=== PATIENT | male | born 1940 | race Caucasian/White ===

== ENCOUNTER → 2016-10-10 | Outpatient (CLI) | payer BC ==
[~2016-10-10] MED LIST: ACET-1256 PO; ASCO1CAP3 PO; ATV1 PO; CETI10TA84 PO; CHOLCAP5 PO; CYAN10004 PO; LEVO75TA PO; LISI-791 PO; MULT-506 PO; NXM/40 PO; OPTIRAY 320 IV PRN; SIMV20TA2 PO; VENL-271 PO; VITA400C3 PO
--- NOTE | 2016-10-10 13:40 | DIAGNOSTIC IMAGING REPORT ---
CT SCAN OF THE CHEST, ABDOMEN, AND PELVIS WITH IV CONTRAST CLINICAL HISTORY: Colon cancer. COMPARISON STUDY: CT scan of the abdomen and pelvis dated 08/25/2015. CT scan of the thoracic spine dated 08/25/2015. TECHNIQUE: Following the IV administration of 110 of Optiray 320, CT scan of the chest, abdomen, and pelvis was performed from the thoracic inlet to the proximal femora. Images are reviewed in the axial, sagittal, and coronal planes. IV contrast was administered without complication. Automated dose control exposure was utilized. CT DOSE: 816.05 mGy.cm FINDINGS: CHEST: Thyroid: Imaged portions of the thyroid gland are normal in size and attenuation. Thoracic aorta: The thoracic aorta is normal in caliber and demonstrates standard 3-vessel arch anatomy. No dissection is seen. Pulmonary vasculature: The pulmonary trunk is normal in caliber. There are no filling defects identified in the central pulmonary vessels to indicate pulmonary was. Note that this examination was not protocoled for evaluation of the pulmonary arteries. Heart: The heart is enlarged and without pericardial effusion. The coronary arteries are densely calcified. Lungs and pleural spaces: There is no airspace consolidation or pleural effusion. Scattered calcified granulomas are identified. No concerning pulmonary lesion is seen. The trachea and central airways are clear. Mediastinum: There is no mediastinal lymphadenopathy. Ofelia: Clear. Axillae: There is no axillary lymphadenopathy. Bony thorax: The skeletal structures are osteopenic. Mild degenerative change is noted throughout the thoracic spine. No lytic or blastic lesions are identified. Fusion hardware is noted in the lower cervical spine. ABDOMEN AND PELVIS: Liver: The contrast-enhanced liver is top normal in size. The liver demonstrates diffusely diminished attenuation consistent with hepatic steatosis. Fatty sparing is seen adjacent to gallbladder fossa. There is no intrahepatic or ductal dilatation. The hepatic veins and portal veins are patent. Gallbladder: Unremarkable. Spleen: The spleen is enlarged, measuring 15 cm in length. Pancreas: Unremarkable. Adrenal glands: Unremarkable. Kidneys: The contrast enhanced kidneys demonstrate mild cortical atrophy and are without hydronephrosis. The kidneys enhance symmetrically. Abdominal vasculature: The abdominal aorta is normal in course and caliber noting moderate atherosclerotic calcification. Stomach and bowel: There is a small hiatal hernia. The stomach and duodenum otherwise normal in configuration. There is a large duodenal diverticulum. There are postoperative changes from sigmoid colon resection with colocolonic anastomosis. No bowel obstruction is seen. There is mild diverticulosis of the remaining colon without CT evidence of acute diverticulitis. The appendix is not identified and reported surgically absent. Peritoneum: There is no intraperitoneal free air or abdominal ascites. There is a fat-containing umbilical hernia. A ventral surgical scar is noted. Lymphadenopathy: None. Pelvic viscera: The bladder, prostate, and seminal vesicles are normal as visualized. Skeletal structures: The skeletal structures are osteopenic. There is moderate lumbosacral spondylosis with evidence of previous laminectomy in the lower lumbar spine. A large posterior disc osteophyte complex is seen at L2-L3. No lytic or blastic lesions are seen. IMPRESSION: 1. There is no evidence of metastatic disease in the chest, abdomen, or pelvis. 2. The lungs are clear. 3. Cardiomegaly. 4. There are no acute infectious or inflammatory findings in the abdomen or pelvis. 5. There are postoperative changes from sigmoid colon resection with colocolonic anastomosis. No bowel obstruction is seen. 6. Hepatic steatosis. 7. Splenomegaly. 8. There is mild diverticulosis of the colon without CT evidence of acute diverticulitis. 9. Additional changes as above. Electronically signed by: Vitaly Sunshine M.D. 10/10/2016 1:38 PM Dictated Date/Time: 10/10/2016 1:27 PM
== END | disposition home or self-care (01) ==
LOC: C.CTS 12:35
PROVIDERS: ATTEND Internal Medicine Hematology & Oncology
DX: C18.5 Malignant neoplasm of splenic flexure (principal); I51.7 Cardiomegaly; R16.1 Splenomegaly, not elsewhere classified

== ENCOUNTER → 2016-10-31 | Outpatient (CLI) | payer BC ==
[~2016-10-31] MED LIST changes: -OPTIRAY 320 IV PRN
--- NOTE | 2016-10-31 10:36 | DIAGNOSTIC IMAGING REPORT ---
CT OF THE CERVICAL SPINE CLINICAL HISTORY: Neck pain. Cervical radiculopathy. COMPARISON STUDY: No previous studies for comparison. CT DOSE: 492.00 mGycm TECHNIQUE: CT scan of the cervical spine was performed from the skull base to the thoracic inlet. Images are reviewed in the axial, sagittal, and coronal planes. IV contrast was not administered for this examination. FINDINGS: The visualized portions of the lung apices reveal no evidence of pneumothorax. The prevertebral soft tissues are normal. No fractures or subluxations are visualized. There are multilevel degenerative changes present. The patient is status post a partial C6 corpectomy and anterior fusion. There is right-sided foraminal narrowing at the C3-4 level. There is mild bilateral foraminal narrowing at the C4-5, C5-6, and C6-7 levels. There is suspected spinal stenosis the C6-7 level. IMPRESSION: Postsurgical and degenerative changes. No acute fractures or traumatic subluxations are visualized. Electronically signed by: Vincent Larsen M.D. 10/31/2016 10:34 AM Dictated Date/Time: 10/31/2016 10:24 AM
--- NOTE | 2016-10-31 12:19 | DIAGNOSTIC IMAGING REPORT ---
MRI OF THE CERVICAL SPINE WITHOUT IV CONTRAST CLINICAL HISTORY: Neck pain. Cervical radiculopathy. COMPARISON STUDY: CT scan of the cervical spine dated 10/31/2016. TECHNIQUE: MRI of the cervical spine is performed utilizing various T1 and T2-weighted sequences in the axial and sagittal planes. IV contrast was not administered for this examination. FINDINGS: Cervical spine: Vertebral body height is maintained throughout the cervical spine. There is straightening of the cervical lordosis with mild reversal centered at C5. There is 4 mm of anterolisthesis at C7-T1. There are postoperative changes from corpectomy at C6 with anterior fusion from C5 to C7. Susceptibility artifact from orthopedic hardware degrades assessment at these levels. The atlantodental articulation appears maintained. The spinous processes are intact. Anterior osteophytes are seen at C3 and C4. No destructive bony lesion is identified. A small hemangioma is noted in the body of T2. Intervertebral discs: There is moderate to advanced degenerative disc space narrowing at C3-C4 and C4-C5. Mild narrowing is seen at C7-T1. The C5-C6 and C6-C7 discs are presumed surgically absent. Cervical cord: There is a 5 mm focus of myelomalacia seen at the level of C5-C6. This is likely related to remote insult. The remainder of the cervical cord is normal in morphology and signal intensity. C2-C3: A posterior disc osteophyte complex eccentric to the left effaces the ventral subarachnoid space. Facet arthropathy causes minimal left neural foraminal stenosis. C3-C4: A posterior disc osteophyte complex effaces the ventral cord. Uncovertebral and facet arthropathy cause severe right and moderate to severe left neural foraminal stenosis. C4-C5: A posterior disc osteophyte complex effaces the ventral subarachnoid space. Uncovertebral and facet arthropathy cause severe bilateral neural foraminal stenosis. C5-C6: A posterior disc osteophyte complex abuts the ventral cord. Uncovertebral and facet arthropathy cause moderate bilateral neural foraminal stenosis. C6-C7: A posterior disc osteophyte complex abuts the ventral cord. Uncovertebral and facet arthropathy cause severe left and moderate right neural foraminal stenosis. C7-T1: A posterior disc osteophyte complex eccentric to the left effaces the ventral subarachnoid space. The neural foramina appear patent. Soft tissues: The prevertebral and paraspinous soft tissues are normal as imaged. Brain parenchyma: Nigel cisterna magna versus an arachnoid cyst is present in the posterior fossa. Partially imaged brain parenchyma at the skull base is otherwise within normal limits. IMPRESSION: 1. There are postoperative changes from corpectomy at C6 with anterior fusion from C5 to C7 as detailed above. 2. Multilevel cervical spondylosis as above. See discussion for detailed level by level analysis. 3. 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 This is likely related to a remote insult. Clinical correlation will be required. 4. There is 4 mm of anterolisthesis at C7-T1. Dictated: 10/31/2016 11:29 AM Transcribed: 10/31/2016 12:19 PM [email or web address] Electronically signed by: Vitaly Sunshine M.D. 10/31/2016 12:36 PM Dictated Date/Time: 10/31/2016 11:29 AM
== END | disposition home or self-care (01) ==
LOC: C.CTS 09:55
PROVIDERS: ATTEND Orthopaedic Surgery Orthopaedic Surgery of the Spine
DX: M54.12 Radiculopathy, cervical region (principal)

== ENCOUNTER → 2016-11-05 | Outpatient (CLI) | payer BC ==
--- NOTE | 2016-11-05 11:19 | DIAGNOSTIC IMAGING REPORT ---
TESTICULAR ULTRASOUND HISTORY: Testicular atrophy.. COMPARISON: Testicular ultrasound 05/01/2016. FINDINGS: Right testis: 5.1 x 2.7 x 1.6 cm. There are no intratesticular masses. Normal color flow. No hydrocele. The epididymis is unremarkable. Echotexture of the right testis remains diffusely heterogeneous. Left testis: 5.7 x 2.8 x 3.8 cm. There are no intratesticular masses. Normal color flow. No hydrocele. A 1 mm epididymal head cyst. Echotexture of the left testis remains heterogeneous/striated. IMPRESSION: No change from the prior study. Persistent heterogeneous testicular echotexture, right greater than left. This favors atrophy. Electronically signed by: Delonte Aguila M.D. 11/05/2016 11:18 AM Dictated Date/Time: 11/05/2016 11:15 AM
== END | disposition home or self-care (01) ==
LOC: C.ULTR 10:49
PROVIDERS: ATTEND Urology
DX: Z12.5 Encounter for screening for malignant neoplasm of prostate (principal); N52.9 Male erectile dysfunction, unspecified; N50.0 Atrophy of testis

== ENCOUNTER → 2017-09-26 | Outpatient (CLI) | payer BC ==
[~2017-09-26] MED LIST changes: +OPTIRAY 320 IV PRN
--- NOTE | 2017-09-26 12:50 | DIAGNOSTIC IMAGING REPORT ---
(CHEST) THORAX WITH CT DOSE: 798.02 mGy.cm HISTORY: Colon carcinoma COLON CA TECHNIQUE: Multiaxial CT images of the chest were performed following the intravenous administration of contrast. A dose lowering technique was utilized adhering to the principles of ALARA. COMPARISON: 10/10/2016 FINDINGS: The lungs are clear. The mediastinal vascular structures are within normal limits. No mediastinal or hilar lymphadenopathy. No pleural effusion or pneumothorax. Limited views of the upper abdomen demonstrate a normal liver and spleen. IMPRESSION: No significant abnormality identified within the chest. Negative study. No change from the prior exam. The above report was generated using voice recognition software. It may contain grammatical, syntax or spelling errors. Electronically signed by: Gaurav Us M.D. 09/26/2017 12:48 PM Dictated Date/Time: 09/26/2017 12:44 PM
--- NOTE | 2017-09-26 12:53 | DIAGNOSTIC IMAGING REPORT ---
CT SCAN OF THE ABDOMEN AND PELVIS WITH IV CONTRAST CLINICAL HISTORY: Colon cancer. COMPARISON STUDY: CT scan of the abdomen and pelvis dated 10/10/2016. TECHNIQUE: Following the IV administration of 95 of Optiray 320, CT scan of the abdomen and pelvis was performed from the lung bases to the proximal femora. Images are reviewed in the axial, sagittal, and coronal planes. IV contrast was administered without complication. A dose lowering protocol was utilized adhering to the principles of ALARA. FINDINGS: Lower chest: The heart is enlarged and without pericardial effusion. The coronary arteries are densely calcified. There is a small hiatal hernia. The lung bases are clear. Liver: The contrast-enhanced liver is top normal in size. The liver demonstrates diffusely diminished attenuation consistent with hepatic steatosis. Fatty sparing is seen adjacent to gallbladder fossa. There is no intrahepatic or ductal dilatation. The hepatic veins and portal veins are patent. Gallbladder: Unremarkable. Spleen: The spleen is enlarged, measuring 15.1 cm in length. Pancreas: Unremarkable. Adrenal glands: Unremarkable. Kidneys: The contrast enhanced kidneys demonstrate mild cortical atrophy and are without hydronephrosis. The kidneys enhance symmetrically. Abdominal vasculature: The abdominal aorta is normal in course and caliber noting moderate atherosclerotic calcification. Bowel: There is a large duodenal diverticulum. There are postoperative changes from sigmoid colon resection with colocolonic anastomosis. Moderate colonic fecal retention is observed. No bowel obstruction is seen. There is mild diverticulosis of the remaining colon without CT evidence of acute diverticulitis. The appendix is not identified and reported surgically absent. Peritoneum: There is no intraperitoneal free air or abdominal ascites. There is a fat-containing umbilical hernia. A ventral surgical scar is noted. Lymphadenopathy: None. Pelvic viscera: The bladder, prostate, and seminal vesicles are normal as visualized. Skeletal structures: The skeletal structures are heterogeneously osteopenic. There is moderate lumbosacral spondylosis with evidence of previous laminectomy in the lower lumbar spine. A large posterior disc osteophyte complex is seen at L2-L3. No lytic or blastic lesions are seen. IMPRESSION: 1. There is no evidence of metastatic disease in the abdomen or pelvis. 2. There are no acute infectious or inflammatory findings in the abdomen or pelvis. 3. Cardiomegaly. 4. Splenomegaly. 5. There are postoperative changes from sigmoid colon resection with colocolonic anastomosis. No bowel obstruction is seen. 6. Hepatic steatosis. 7. Splenomegaly. 8. Additional changes as above. Electronically signed by: Vitaly Sunshine M.D. 09/26/2017 12:52 PM Dictated Date/Time: 09/26/2017 12:46 PM
== END | disposition home or self-care (01) ==
LOC: C.CTS 12:15
PROVIDERS: ATTEND Internal Medicine Hematology & Oncology
DX: C18.5 Malignant neoplasm of splenic flexure (principal); R16.1 Splenomegaly, not elsewhere classified; I51.7 Cardiomegaly

== ENCOUNTER 2021-11-09 10:06 | Inpatient (IN) ==
--- NOTE | 2021-11-01 13:23 | PAT Medication Instructions ---
Medication Instructions Date of Service November 01, 2021 Home Medications Medication Instructions Recorded apixaban 5 mg tablet (Eliquis) 5 mg PO BID #60 tab 08/13/21 mometasone 0.1 % topical solution 1 applic TOPICAL DAILY PRN #30 ml 09/06/21 cyanocobalamin (vitamin B-12) 1,000 mcg tablet 1,000 mcg PO QAM amlodipine 10 mg tablet (Norvasc) 10 mg PO QPM atorvastatin 10 mg tablet (Lipitor) 10 mg PO QPM duloxetine 60 mg capsule,delayed release (Cymbalta) 60 mg PO QPM levothyroxine 112 mcg tablet (Synthroid) 112 mcg PO UD multivitamin (Multiple Vitamins) 1 tab PO QAM telmisartan 80 mg tablet (Micardis) 80 mg PO QPM zinc acetate 1 cap PO QAM esomeprazole magnesium 40 mg capsule,delayed release 40 mg PO BID levothyroxine 100 mcg capsule 100 mcg PO UD propranolol 40 mg tablet 40 mg PO QPM bupropion HCl 300 mg 24 hr tablet, extended release (Wellbutrin XL) 300 mg PO QAM apixaban 5 mg tablet (Eliquis) 5 mg PO BID mometasone 0.1 % topical solution 1 applic TOPICAL DAILY PRN cetirizine 10 mg tablet (Zyrtec) 10 mg PO QAM isosorbide mononitrate 30 mg tablet,extended release 24 hr 30 mg PO QAM Continue as directed levothyroxine (Synthroid) ASK your prescriber and surgeon apixaban 5 mg tablet (Eliquis) 5 mg PO BID (in order for spinal anesthesia, Eliquis needs to be stopped 72 hours/3 days before surgery. Please check if okay with doctor that prescribes this to you) STOP taking 24 hours before surgery mometasone 0.1 % topical solution 1 applic TOPICAL DAILY PRN DO NOT take the morning of surgery cyanocobalamin (vitamin B-12) 1,000 mcg tablet 1,000 mcg PO QAM multivitamin (Multiple Vitamins) 1 tab PO QAM zinc acetate 1 cap PO QAM cetirizine 10 mg tablet (Zyrtec) 10 mg PO QAM Take morning of surgery With a small sip of water, OTHERWISE NOTHING TO EAT OR DRINK AFTER MIDNIGHT: esomeprazole magnesium 40 mg capsule,delayed release 40 mg PO BID bupropion HCl 300 mg 24 hr tablet, extended release (Wellbutrin XL) 300 mg PO QAM isosorbide mononitrate 30 mg tablet,extended release 24 hr 30 mg PO QAM Take evening before surgery amlodipine 10 mg tablet (Norvasc) 10 mg PO QPM atorvastatin 10 mg tablet (Lipitor) 10 mg PO QPM duloxetine 60 mg capsule,delayed release (Cymbalta) 60 mg PO QPM telmisartan 80 mg tablet (Micardis) 80 mg PO QPM esomeprazole magnesium 40 mg capsule,delayed release 40 mg PO BID propranolol 40 mg tablet 40 mg PO QPM Other Notes If you have any questions please call us at [phone] or [phone] or [phone] or [phone]
--- NOTE | 2021-11-02 13:41 | Anesthesiology Consultation ---
Date of Service November 02, 2021 Assessment & Plan (1) Encounter for pre-operative examination: - check BMP am DOS. GA, not neuraxial anesthesia given h/o trapped epidural catheter - hyperkalemia: K 5.3. Case reviewed with Dr. Childress who advised checking BMP am DOS. - listed h/o valvular disease, with notation on endocarditis but no previous evidence of endocarditis in record. Patient contacted and denies h/o endocarditis, aware to follow cardiology recommendations on anticoagulant and plan is for GA. He verbalized full understanding and denied questions or concerns. - cardiology pre-op optimization 11/05/2021 [place]: "...No concerns from a cardiac standpoint. Ok to proceed without additional cardiac testing. Hold apixaban for 48 hours prior to procedure. Resume when safe from a surgical standpoint..." - Case discussed with Dr. Villar who advised cardiology pre-op notation on any recommendations/concerns and advised patient be for GA given epidural catheter complications and h/o AAA without recent imaging. Cardio advised holding anticoagulant for 48 hours, acceptable as patient will not be receiving neuraxial anesthesia. - cardiology office visit 03/15/2021 [place]: "...Underwent Lexiscan SPECT 12/2020 which was read as negative for ischemia. On my review subtle base to mid inferoseptal perfusion defect. EF 69% without wall motion abnormalities. He was started on Imdur 30 mg daily. With that he reported some mild improvement in breathlessness with walking up stairs. Still endorsed sudden intermittent episodes of dizziness, dyspnea. A 14-day event monitor obtainded which showed paroxysmal atrial fibrillation, longest episode more than 2 hours, peak heart rate 117. Symptoms did not correlate with A. fib or other arrhythmia. Was started on Eliquis. Today reports feeling well. His exertional dyspnea is improved. Having less episodes of intermittent shortness of breath. Does continue to have occasional dizziness with turning his head. Attributes symptoms to cervical radiculopathy...Low risk nuclear SPECT with questionable amount of inferior septal ischemia xertional dyspnea improved on Imdur. Thoracic aortic aneurysmascending, 4.3 cm 10/2019. Paroxysmal atrial [id number] 5 (questionable prior retinal artery occlusion 2018), on Eliquis. Uafkoiodrtry-crhb-dlwjtlyyyd on 4 meds...exertional dyspnea has improved. Unclear how much low-dose Imdur has actually helped. For now with patient feeling well will continue Imdur. Possible trial off med at some point. With paroxysmal A. fib and what sounds to be a prior retinal artery occlusive event feel he is high risk for future embolic events and recommend continued anticoagulation with Eliquis..." - h/o trapped epidural catheter 08/24/2015: - progress note 08/30/2015 [place]: "...high grade adenocarcinoma...post-op with associated paresthesia...L-spine CT performed (08/25/15) due to symptoms and epidural catheter: showed malpositioned epidural catheter; epidural hematoma not excluded no this study. T-spine CT scan performed (08/25/15) which did not demonstrate any significant findings. CT scan of abdomen performed (08/25/15)-post-op changes noted...operative intervention performed--L2-L3 laminectomy; repair of dural tear; removal of epidural catheter (hematoma was not noted). No noted LE deficits noted this am...anemia-likely combination of underlying colon CA, surgical blood loss...leukocytosis-pt afebrile since surgery, likely due to physiologic stress...TAYLOR...resolved with hydration measures..." - surgical progress note 08/30/2015 [place]: "...doing very well...6th postoperative day status post resection of the splenic flexure, descending and sigmoid colon...path report was known...arrangements for oncology...plan is to reevaluate him later today and if stable will...discharge him..." - anesthesia record 08/25/2015 [facility] epidural catheter site exploration and removal: Grade 1 view, Glidescope #4, ETT#7.5 atraumatic x 1. - anesthesia record 08/24/2015 [facility] open left sigmoid colon resection: Grade 2 view, MAC#3, ETT#7.5 atraumatic x 1 + epidural: L3-L4 x 1 attempt. - COVID screening: Per assessment on 11/02/2021: Travel screen negative, no known COVID-19 positive contacts or current COVID-19 related symptoms in past 2 weeks. Patient vaccinated. Surgeon arranging preop COVID testing, scheduled 11/07/2021. Awaiting results. Chart Review Chart Review: Acceptable Risk for Surgery and Patient seen in Pre Admission Testing Teaching & Discussion Pre-Anesthesia Teaching/Discussion Notes: Instructed NPO after midnight before surgery, except medications with 15 cc of water. Medication instructions provided according to the PAT guidelines. History Surgery Operation Date: 11/09/21 13:00 Proposed Procedures p Removal of Right Total Knee and Placement of Antibiotic Spacer - Michael Guillen MD Height/Weight Height: 5 ft 9 in Weight: 85.5 kg Allergies Allergy/AdvReac Type Severity Reaction Status Date / Time No Known Drug Allergies Allergy Verified 11/01/21 11:11 Medications Home Medications Medication Instructions Recorded Confirmed Last Taken cyanocobalamin (vitamin B-12) 1,000 mcg PO QAM tab 02/07/20 11/01/21 Unknown 1,000 mcg tablet amlodipine 10 mg tablet (Norvasc) 10 mg PO QPM 02/10/20 11/01/21 Unknown atorvastatin 10 mg tablet (Lipitor) 10 mg PO QPM 02/10/20 11/01/21 Unknown duloxetine 60 mg capsule,delayed 60 mg PO QPM 02/10/20 11/01/21 Unknown release (Cymbalta) levothyroxine 112 mcg tablet 112 mcg PO UD 02/10/20 11/01/21 Unknown (Synthroid) multivitamin (Multiple Vitamins) 1 tab PO QAM 02/10/20 11/01/21 Unknown telmisartan 80 mg tablet (Micardis) 80 mg PO QPM 02/10/20 11/01/21 Unknown zinc acetate 1 cap PO QAM 11/23/20 11/01/21 Unknown esomeprazole magnesium 40 mg 40 mg PO BID cap 01/09/21 11/01/21 Unknown capsule,delayed release levothyroxine 100 mcg capsule 100 mcg PO UD 03/15/21 11/01/21 Unknown propranolol 40 mg tablet 40 mg PO QPM tab 03/15/21 11/01/21 Unknown bupropion HCl 300 mg 24 hr tablet, 300 mg PO QAM 07/16/21 11/01/21 Unknown extended release (Wellbutrin XL) apixaban 5 mg tablet (Eliquis) 5 mg PO BID #60 tab 08/13/21 11/01/21 Unknown mometasone 0.1 % topical solution 1 applic TOPICAL DAILY PRN #30 ml 09/06/21 11/01/21 Unknown cetirizine 10 mg tablet (Zyrtec) 10 mg PO QAM 11/01/21 11/01/21 Unknown isosorbide mononitrate 30 mg 30 mg PO QAM 11/01/21 11/01/21 Unknown tablet,extended release 24 hr Past Medical History Medical History (Updated 11/06/21 @ 10:49 by Ruma Qiuck PA-C) AAA (abdominal aortic aneurysm) 4.3 cm 10/2019, [place] [facility] [place] Anemia Hgb 11 over past 3 months Atrial fibrillation per records -- on eliquis - 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 Exercise / Class Metabolic Activity II 4-5 Yardwork/Stairs/Walk up hill (mild SOB with 1 FOS ongoing x 6 months, denies change or worsening; denies CP) Past Family History Family History Father Hypertension Heart disease Sister Breast cancer Liver cancer Mother Breast cancer Other No family history of adverse response to anesthesia No family history of bleeding disorder Past Surgical History Surgical History (Updated 11/02/21 @ 14:15 by Ruma Quick PA-C) History of appendectomy History of bowel resection 08/2015 complicated by presence of small tumor requiring patient undergoing surgery soon in post-op period due to epidural catheter coiling around tumor History of cervical spinal surgery x 2 surgeries - limited ROM up/down, side to side @ [place] History of colonoscopy History of esophagogastroduodenoscopy (EGD) History of hernia repair History of left knee replacement History of lumbar surgery 2009 and 2011 [place] History of right knee joint replacement History of shoulder surgery Rt x 2, Lt x 2 Past Anesthesia History No Family Hx of Anesthesia Complications and Other (see above complications with epidural) History of PONV No Hx of PONV and No Hx of Motion Sickness Social History Smoking Status: Former smoker Do You Dip or Chew Tobacco: No Smoking End Date: 1977 Hx Alcohol Use: Yes alcohol intake frequency: a few times a week Hx Substance Use: No substance use type: does not use Review of Systems Negative HST. Rare snoring, no witnessed apneas per his . Patient denies chest pain, fever, chills, cough, wheezing, or palpitations. Physical Exam Vital Signs Vitals BP 125/72 P 63 TEMP 98.0 SP02 98% on RA RESP 17 Physical Full cervical extension range of motion without pain Full TMJ range of motion TMD 3.5 finger breaths Mallampati Score 3 Dentition: intact, multiple missing teeth throughout, several crowns-right and left upper side, bridges upper and lower sides and back; denies chipped or loose teeth Lungs: normal respiratory effort. Clear throughout to auscultation, no adventitious breath sounds Cardiac: regular rate and rhythm, no murmurs noted Carotid arteries: negative bruit bilat Lab Results Anesthesia Preop Results Results Anesthesia Widget: WBC 7.37 K/uL (4.8-10.8) 11/02/21 Hgb 11.1 g/dL (14.0-18.0) L 11/02/21 Hct 33.3 % (42-52) L 11/02/21 Plt 223 K/uL (130-400) 11/02/21 PT 10.9 Seconds (9.0-12.0) 11/02/21 PTT 29.8 Seconds (21.0-31.0) 11/02/21 INR 1.0 (0.9-1.1) 11/02/21 HA1c 5.9 % (4.5-5.6) H 11/02/21 Urine Color Yellow 11/02/21 Urine Appearance Clear (Clear) 11/02/21 Urine pH 5.5 (4.5-7.5) 11/02/21 Urine Specific Willard 1.020 (1.000-1.030) 11/02/21 Urine Protein Trace (Negative) H 11/02/21 Urine Glucose (UA) Negative (Negative) 11/02/21 Urine Ketones Trace (Negative) H 11/02/21 Urine Blood Negative (Negative) 11/02/21 Urine Nitrite Negative (Negative) 11/02/21 Urine Bilirubin Negative (Negative) 11/02/21 Urine Urobilinogen Negative (Negative) 11/02/21 Urine Leukocyte Esterase Negative (Negative) 11/02/21 Urine WBC (Auto) 1-5 /hpf (0-5) 11/02/21 Urine RBC (Auto) 0-4 /hpf (0-4) 11/02/21 Urine Hyaline Casts (Auto) 1-5 /lpf (0-5) 11/02/21 Urine Epithelial Cells (Auto) 0-5 /lpf (0-5) 11/02/21 Urine Bacteria (Auto) Negative (Negative) 11/02/21 Blood Type O Positive 11/02/21 Antibody Screen NEGATIVE 11/02/21 Testing Laboratory Results 10/26/2021 SODIUM: 138 POTASSIUM: 5.3 CHLORIDE: 101 CO2: 28 BUN: 27 CREATININE: 1.0 GLUCOSE: 83 A1c: 6.0% Electrocardiogram Date: 11/23/20 Sinus bradycardia, rate 52 bpm Moderate intraventricular conduction delay Chest X-Ray Date: 11/30/20 FINDINGS: The heart is borderline enlarged. There is persistent aortic tortuosity/ectasia. There is no failure. There is no focal pulmonary consolidation. There are no pleural effusions. There are postsurgical changes present within the cervical spine. IMPRESSION: Stable borderline cardiomegaly and persistent aortic tortuosity/ectasia. No acute findings. Echocardiogram Date: 08/28/15 EF 65-70% Mild cLVH Left ventricle normal in size and systolic function No regional wall motion abnormalities Grade I diastolic dysfunction Mild to moderate right ventricle dilation Mild left atrial dilation Trace mitral regurgitation Trace pulmonic regurgitation Trace tricuspid regurgitation Stress Test Date: 12/26/20 Conclusions: 1. No scintigraphic evidence of a prior myocardial infarction or stress-induced myocardial ischemia. 2. No exercise-induced chest pain. 3. No EKG changes. 4. Normal left ventricular systolic function without wall motion abnormality. Left ventricular ejection fraction is 69%. Cardio 03/15/2021 note: "On my review subtle base to mid inferoseptal perfusion defect. EF 69% without wall motion abnormalities..." Other Testing Heart event monitor 02/08/2021 Paroxysmal AF-peak HR 117 Frequent PVCs
[~2021-11-09 10:06] MED LIST changes: -ACET-1256 PO; +ACETAMINOPHEN 500 MG TAB PO SCH; -ASCO1CAP3 PO; -ATV1 PO; -CETI10TA84 PO; -CHOLCAP5 PO; -CYAN10004 PO; +CeleBREX 200 MG CAP PO SCH; +FAMOTIDINE 20 MG TAB PO SCH; +GABAPENTIN 300 MG CAP PO SCH; +LACTATED RINGER'S 1,000 ML IV SCH; -LEVO75TA PO; -LISI-791 PO; +METOCLOPRAMIDE HCL 10 MG TABLET PO SCH; -MULT-506 PO; -NXM/40 PO; -OPTIRAY 320 IV PRN; -SIMV20TA2 PO; +TRANEXAMIC ACID 1,000 MG **IV Intra-op IV SCH; +TRANEXAMIC ACID 1,000 MG **IV Pre-op IV SCH; +VANCOMYCIN HCL 1,250 MG in SODIUM CHLORIDE 0.9% 250 ML IV SCH; -VENL-271 PO; -VITA400C3 PO; +ceFAZolin 2000MG 2,000 MG/15 ML SYR IV SCH; +dexAMETHasone 4 MG TAB PO SCH
[2021-11-09 11:18] LABS: BUN Creatinine Ratio 21.8 (10-20); Calcium 9.5 mg/dl (8.5-10.1); Creatinine Clr Calc Pharmacy 49.5 ml/min; Est GFR (African American) 66.5 ml/min; Est GFR (Non-African American) 57.3 ml/min; Potassium 4.2 mmol/L (3.5-5.1)
[2021-11-09] MEDS ORDERED: VANCOMYCIN HCL 1000MG/20ML VIAL ONE (13:04)
[2021-11-09] MEDS ORDERED: GENTAMICIN SULFATE 40 MG/ML 2 ML VIAL ONE (13:04)
[2021-11-09] MEDS ORDERED: PROPOFOL IV EMULSION 10 MG/ML 20 ML VIAL IV ONE (13:20)
[2021-11-09] MEDS ORDERED: LIDOCAINE 2% 2 ML VIAL/AMP(20MG/ML) INFIL ONE (13:20)
[2021-11-09] MEDS ORDERED: MIDAZOLAM HCL 1 MG/ML 2ML VIAL ONE (13:21)
[2021-11-09] MEDS ORDERED: fentaNYL citrate 100 MCG/2 ML VIAL ONE ×2 (13:21→15:05)
[2021-11-09] MEDS ORDERED: PHENYLEPHRINE HCL 10 MG/ML VIAL ONE (13:27)
--- NOTE | 2021-11-09 13:27 | History & Physical Bridge Note ---
Date of Service November 09, 2021 History & Physical Bridge Note I have examined the patient, reviewed the History & Physical and in the interval since the performance of the History & Physical I have noted the following changes of clinical significance: no changes noted
--- NOTE | 2021-11-09 13:31 | History & Physical Report ---
Date of Service November 09, 2021 Assessment & Plan (1) Infection of total knee replacement: Plan: Treatment options discussed with the patient. 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 Surgical intervention recommended. Risks, benefits and alternatives to surgery including but not limited to infection, DVT, pain, stiffness, need for revision surgery, damage to blood vessels, damage to nerves, PE, , were discussed with the patient and they wish to proceed. Plan on explant of right total knee with placement of antibiotic spacer. Surgery scheduled for 11/09/[address] Guillen at [facility]. All questions answered. Will plan on ASA 81mg BID for 1 mo post op for DVT prophylaxis. . Encounter type: subsequent encounter Qualified Code(s): T84.59XD - Infection and inflammatory reaction due to other internal joint prosthesis, subsequent encounter; Z96.659 - Presence of unspecified artificial knee joint History of Present Illness Chief Complaint: Right knee pain Primary Care Provider: Lamine Sandoval 81yo male with PMHx significant for AAA, a-fib, valvular heart disease, HTN, high cholesterol, b/l TKA who presents with onset of right knee pain for at least the past 6 mos. Has been having pain and swelling. Workup for infection positive. Normal sed rate and white count, however elevated CRP. On aspiration was alpha defensin positive with white count of 8K and 80% polys. Cultures were no growth. Surgical intervention was recommended. Patient denies headaches, sweats, fevers, chills, double vision, blurred vision, cough, sore throat, dysphagia, chest pain, sob, wheezing, n/v/d/c, numbness, tingling, fatigue, urinary symptoms, mood disorders. ROS positive for right knee pain and swelling. Allergies Allergy/AdvReac Type Severity Reaction Status Date / Time No Known Drug Allergies Allergy Verified 11/09/21 10:44 Home Medications Medication Instructions Recorded Confirmed Type cyanocobalamin (vitamin B-12) 1,000 mcg PO QAM tab 02/07/20 11/09/21 History 1,000 mcg tablet amlodipine 10 mg tablet (Norvasc) 10 mg PO QPM 02/10/20 11/09/21 History atorvastatin 10 mg tablet (Lipitor) 10 mg PO QPM 02/10/20 11/09/21 History duloxetine 60 mg capsule,delayed 60 mg PO QPM 02/10/20 11/09/21 History release (Cymbalta) levothyroxine 112 mcg tablet 112 mcg PO UD 02/10/20 11/09/21 History (Synthroid) multivitamin (Multiple Vitamins) 1 tab PO QAM 02/10/20 11/09/21 History telmisartan 80 mg tablet (Micardis) 80 mg PO QPM 02/10/20 11/09/21 History zinc acetate 1 cap PO QAM 11/23/20 11/09/21 History esomeprazole magnesium 40 mg 40 mg PO BID cap 01/09/21 11/09/21 History capsule,delayed release (Nexium) levothyroxine 100 mcg capsule 100 mcg PO UD 03/15/21 11/09/21 History propranolol 40 mg tablet 40 mg PO QPM tab 03/15/21 11/09/21 History bupropion HCl 300 mg 24 hr tablet, 300 mg PO QAM 07/16/21 11/09/21 History extended release (Wellbutrin XL) apixaban 5 mg tablet (Eliquis) 5 mg PO BID #60 tab 08/13/21 11/09/21 Rx mometasone 0.1 % topical solution 1 applic TOPICAL DAILY PRN #30 ml 09/06/21 11/09/21 Rx cetirizine 10 mg tablet (Zyrtec) 10 mg PO QAM 11/01/21 11/09/21 History isosorbide mononitrate 30 mg 30 mg PO QAM 11/01/21 11/09/21 History tablet,extended release 24 hr Past Med/Surg History Medical History (Updated 11/09/21 @ 13:30 by Solomon Rojo PA-C) AAA (abdominal aortic aneurysm) 4.3 cm 10/2019, follows with [facility] [place] Anemia Hgb 11 over past 3 months Atrial fibrillation per records -- on eliquis - 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, follows with ophthalmology Surgical History History of appendectomy History of bowel resection 08/2015 complicated by presence of small tumor requiring patient undergoing surgery soon in post-op period due to epidural catheter coiling around tumor History of cervical spinal surgery x 2 surgeries - limited ROM up/down, side to side @ [place] History of colonoscopy History of esophagogastroduodenoscopy (EGD) History of hernia repair History of left knee replacement History of lumbar surgery 2009 and 2011 [place] History of right knee joint replacement History of shoulder surgery Rt x 2, Lt x 2 Family History Father Hypertension Heart disease Sister Breast cancer Liver cancer Mother Breast cancer Other No family history of adverse response to anesthesia No family history of bleeding disorder Social History Smoking Status: Never smoker Tobacco Type: Cigarettes packs per day: 1; Years Smoked: 25; Smoking End Date: 1977; Second Hand Exposure: No; Do You Dip or Chew Tobacco: No; Tobacco Cessation Education Requested by Patient: No Hx Alcohol Use: Yes Alcohol Intake Frequency Comment: 2 drinks/week Hx Substance Use: No Preferred Language: Iraqi Communication Ability: Effective Knockout Man Required: No Beliefs That Will Affect Care: None marital status: Current Living Situation: Spouse current occupational status: retired Feels Safe at Home: Yes Safety Concerns: Feels Safe At This Time Assistive Devices: Denture - Upper, Denture - Lower and Glasses Review of Systems All systems reviewed & are unremarkable except as noted in HPI & below Physical Exam Constitutional: well developed and well nourished; no acute distress Eyes: PERRL, conjunctivae normal, anicteric sclerae ENMT: external ear and nose normal, oropharynx normal Neck: trachea midline, no thyromegaly Respiratory: normal respiratory effort, lungs clear to auscultation Cardiovascular: RRR, no murmur, no edema Musculoskeletal: Right knee: Moderate effusion. Mild tenderness about the knee. No erythema. Stable to valgus and varus stress. Negative posterior drawer. Skin: no rashes, warm and dry Neurologic: patellar DTR's 2+ bilat, sensation intact Psychiatric: A+Ox3, euthymic affect Results & Data ([facility]) Vital Signs (Past 12 Hours) Vital Signs Temp Pulse Resp BP Pulse Ox 11/09/21 11:05 36.5 C 58 L 20 160/90 H 100 Diagnostic Findings right knee radiographs demonstrate well fixed TKA without evidence of loosening. Bone scan demonstrates increased signal consistent with synovitis.
[2021-11-09] MEDS ORDERED: ceFAZolin 330 MG/ML 1 GM VIAL ONE (13:52)
[2021-11-09] MEDS ORDERED: NALOXONE HCL 0.4 MG/1 ML VIAL/CARP IV PRN ×2 (14:12→19:24)
[2021-11-09] MEDS ORDERED: ONDANSETRON INJ 2 MG/ML 2 ML VIAL IV PRN ×2 (14:12→19:24)
[2021-11-09] MEDS ORDERED: fentaNYL citrate 100 MCG/2 ML VIAL IV PRN (14:12)
[2021-11-09] MEDS ORDERED: ATROPINE SULFATE 0.1 MG/ML 10ML SYR IV PRN (14:12)
[2021-11-09] MEDS ORDERED: HYDROmorphone INJ 1 MG/ML SYRINGE IV PRN (14:12)
[2021-11-09] MEDS ORDERED: ePHEDrine sulfate 50 MG/ML AMP IV PRN (14:12)
[2021-11-09] MEDS ORDERED: PROMETHAZINE HCL 12.5 MG in SODIUM CHLORIDE 0.9% 50 ML IV PRN (14:12)
[2021-11-09] MEDS ORDERED: FLUMAZENIL 0.1 MG/1 ML 10 ML VIAL IV PRN (14:12)
[2021-11-09] MEDS ORDERED: LABETALOL HCL IV 5 MG/ML 20ML IV PRN (14:12)
[2021-11-09] MEDS ORDERED: ONDANSETRON INJ 2 MG/ML 2 ML VIAL ONE (15:05)
[2021-11-09] MEDS ORDERED: DEXAMETHASONE SOD INJ 4 MG/ML VIAL ONE (15:05)
[2021-11-09] MEDS ORDERED: ceFAZolin 2000MG 2,000 MG/15 ML SYR IV ONE (16:11)
--- NOTE | 2021-11-09 17:43 | Post Operative Brief Note ---
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 I identified the patient and participated in the time-out.: Yes Procedure Operation Date: 11/09/21 13:00 Actual Procedures Explantation of Right Total Knee replacement femoral tibial and patellar components and Placement of molded articulated antibiotic cement spacer, Synovectomy and debridement bone and cement. Michael Guillen MD Surgeon Michael Guillen MD Court Transcriber Ty LEAHY Estimated Blood Loss 40 Findings Consistent with Post-Op Diagnosis Specimens Culture swabs x2 Tissue cultures multiple Tissue for white blood cell frozen section Drains Hemovac Drain Anesthesia Type General Complications None Disposition Accompanied Patient To Recovery: No Disposition: Recovery Room Overlapping Procedure I was immediately available: during the entire case.
[2021-11-09] MEDS ORDERED: ROPIVACAINE 0.5% 5 MG/ML 30 ML VIAL ONE (18:13)
--- NOTE | 2021-11-09 19:06 | XRay Report ---
TWO VIEWS RIGHT KNEE CLINICAL HISTORY: Postoperative examination. FINDINGS: AP and crosstable lateral portable views of the right knee are obtained. A right knee arthr oplasty is in near anatomic alignment. There has been undersurface remodeling of the patella. No acut e fracture is seen. There are expected postoperative changes around the knee including skin clips, a surgical drain, soft tissue edema, and subcutaneous gas. IMPRESSION: Expected postoperative changes status post right knee arthroplasty. No acute fracture is seen. ACT 112: Negative or not required by law. Electronically signed by: Vitaly Sunshine M.D. 11/09/2021 7:05 PM
--- NOTE | 2021-11-09 19:21 | Operative Report (OR) ---
DATE OF SERVICE: 11/09/2021. INDICATIONS: An 81-year-old male who had bilateral minimally invasive total knee replacements done i 2005. He did well for many years until this last year when he developed chronic pain and swelling in his right knee, and failed conservative management. Because of ongoing pain, workup included a won ne scan, which demonstrates some generalized increased uptake, but no evidence of osteomyelitis. The re was some increased signal activity compared to his opposite knee. The serum white blood cell coun t was normal. The erythrocyte sedimentation rate was high normal, the CRP was elevated over 2. The knee joint aspirate demonstrated alpha-defensin positive test, a white blood cell count over 7000, wh ich would be consistent with septic knee. The antigens were positive for Staphylococcus; however, th e culture was negative. The radiographs demonstrate no clear evidence of any loosening of a cemented posterior stabilized knee replacement. 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 PROCEDURE: Explantation right total knee replacement including femoral, tibial, and patellar compone nts and placement of an articulated antibiotic cement spacer with a synovectomy and debridement of won ne-on-bone cement and debridement of osteomyelitic cystic material. SURGEON: Michael Guillen MD XEROX MACHINE OPERATOR: ARMOND Saldana. ANESTHESIA: General. ESTIMATED BLOOD LOSS: 40 mL. SPECIMENS: Culture swabs x2, tissue cultures multiple, tissue for white blood cell, frozen section. DRAINS: Two Hemovac. COMPLICATIONS: None. DESCRIPTION OF PROCEDURE: The patient was taken to the operating room, anesthetized under a general anesthetic. He had a history of spinal issues that the anesthesia did not want to perform any spinal anesthesia for and because of the infection in the knee, they were reluctant to do a nerve block. T he right lower extremity was examined demonstrate some increased warmth in the knee, but no erythema, no drainage, moderately large effusion in the knee. Range of motion of 15-115 degrees. He is relat ively thin fit individual. A pneumatic tourniquet was placed about the right upper thigh. The right lower extremity was prepped and draped with ChloraPrep. Antibiotics were held until cultures were c ompleted. The right lower extremity after being prepped and draped was elevated, held to drain the leg veins an d then the tourniquet was raised to 300 mmHg. The patient had a previous paramedian arthrotomy from previous surgery. We used that and extended up proximally over the midline of the quad tendon to an S-shaped incision and then the skin was incised sharply through the subcutaneous tissues down to the fascia. There was closure with Ethibond suture and multiple Ethibond sutures had to be removed. Inc ision was made through the prior paramedial arthrotomy and extended up into the mid third of the quad riceps tendon proximally. The synovium was markedly thickened and the joint fluid was clear. Swab c ultures were first obtained deep and then some samples were taken around the femoral component where there was inflamed tissue at the interface between the metal and the bone. There was no loosening of other prosthetic components. The tibial and patellar components did not show any appreciable polyet hylene wear. The electrocautery synovectomy was then performed first removing the thickened synovium in the gutter , which was thickened and scarred on the medial side and then the suprapatellar pouch synovium was re sected, then the lateral gutter synovium was resected, then the scarred infrapatellar fat pad was res ected. The patella was not loose. The patella was sawed off with an oscillating saw, taking care no t to cause any bone resection of significance and then the cement PEGs were drilled out and the polye thylene cement were removed with angled curette. This allowed better exposure of the tibia. The tibi al component demonstrated normal posterior stabilized polyethylene tibial component with no appreciab le wear of significance. This was removed, which gave us more access to the tibial and femoral compo nents. Some more cultures were obtained of the deeper tissue around the implants in the notch area b ehind the post-adjacent to the femoral condyle and after all the cultures were obtained, then the pat ient was administered the antibiotics IV. The femoral and tibial components were not loose at all. There was evidence of osteolysis around the superior flange of the femoral component, posterior condy les of the femoral component had significant osteolysis around both the posterior femoral condyles, t here was some osteolysis around the tibia in certain areas and there was a small area of osteolysis u nder the patella. This was curetted out. At this point, the decision was made to remove the components. The components were removed by first using a small oscillating saw, followed by an Ultra-Drive ultrasound device to loosen the cement. Af ter we worked around the edges of the femoral component, it was struck with a mallet to free it up an d then tamp was used to remove the femoral component of the femur. Underlying areas demonstrated are as of osteolysis under the component. The cement and areas of osteolysis cystic type material and th e damaged bone was removed with a curette and all the cement was removed off the femur. Then, attent ion was taken to the tibia, which was also well fixed. We had used an oscillating saw around the tib ia proximally followed by thin osteotomes and the Ultra-Drive and subsequently stacked osteotomes and a tamp and we were able to remove the tibial component. There was some osteolysis around the drywall sprayer ior aspect of the tibia from the PCL and posterolaterally this cellulitic type material was removed. We did send some more cultures of the osteolytic material that was below the implants. The cement was then removed with cement removal equipment out of the canal of the tibia where the bobby m was cemented. All cement was removed from the surface and within the tibia. Then, the knee was co piously irrigated with antibiotic solution with Ancef with a total of 12 liters of fluid. At this po int, a tourniquet was getting close to 2 hours, so we let the tourniquet down, obtained some hemostas is. Reinflated the tourniquet after 20 minutes and then created our antibiotic molds. We used 4 bag s of cement with gentamicin and vancomycin in the mold and we used a [employer] articulated molds. The fe mur was sized for a large and the tibia for a medium. The femur and tibial components were made at t he same time with 4 bags of cement and then we cemented the tibia secondarily after the femoral compo nent was placed and hardened. When the cement was in the doughy stage, we added some cement to the b ack of the femoral component, held the mold in place over the femur until the cement cured totally th en we trialled the tibial component, which was a little thick and we could note get him into full ext ension, so we sawed off the back of the tibial component to the appropriate length and we had full ra nge of motion 0 through 130 degrees and good stability. At this time, the tibial component was then cemented into the tibia, made a small stab when the cement was in the doughy stage and placed the kne e in full extension while the cement hardened. Taking through a range of motion, knee was stable and articulated well. The patella tracked centrall y without placing any patellar component. Prior to placing the implants, we did do a 3-minute Betadi ne soak of the bone and irrigated all out prior to placing the articulating antibiotic spacer. Furth er irrigation with plain saline solution was performed at the end of the procedure. We brought two d rains out laterally and connected to Hemovac. The quadriceps tendon and medial retinaculum were clos ed with interrupted [id number] #1 antibiotic resistant Vicryl. The subcutaneous tissue closed w ith interrupted 2-0 antibiotic resistant Vicryl. Skin was closed with gena and a MORENA and Acticoa t superficial wound VAC was applied. ARMOND Saldana was my customer service assistant. He functioned as customer service assistant through the entire proce dure. He assisted in the entire procedure including positioning, prepping and draping, leg positioni ng, soft tissue retraction, measuring, creation of moles, wound closure and application of the wound VAC and will participate in hospital postoperative care of the patient. Job ID: [id number]
[2021-11-09] MEDS ORDERED: bisacodyL 10 MG SUPP PR PRN (19:24)
[2021-11-09] MEDS ORDERED: MAGNESIUM HYDROXIDE SUSP 30 ML UDC PO PRN (19:24)
[2021-11-09] MEDS ORDERED: HYDROmorphone INJ 0.5 MG/0.5 ML SYR IV PRN (19:24)
[2021-11-09] MEDS: cefTRIAXone SODIUM 2,000 MG in DEXTROSE 5% 50 ML IV SCH (20:08)
[2021-11-09] MEDS: SODIUM CHLORIDE 0.9% 1000ML 1,000 ML IV SCH (20:08)
[2021-11-09] MEDS: DULoxetine HCL 60 MG CAP PO SCH (22:02)
[2021-11-09] MEDS: ATORVASTATIN 10 MG TAB PO SCH (22:02)
[2021-11-09] MEDS: PANTOprazole 40 MG TAB PO SCH (22:03)
[2021-11-09] MEDS: amLODIPine BESYLATE 5 MG TAB PO SCH (22:03)
[2021-11-09] MEDS: DOCUSATE SODIUM 100 MG CAP PO SCH (22:03)
[2021-11-09] MEDS: ACETAMINOPHEN 500 MG TAB PO SCH (22:04)
[2021-11-09] MEDS: TELMISARTAN 20 MG TAB PO SCH (22:04)
[2021-11-09] MEDS: PROPRANOLOL HCL 20 MG TAB PO SCH (22:05)
[2021-11-09] MEDS: SENNA 8.6 MG TAB PO SCH (22:05)
--- NOTE | 2021-11-09 22:30 | Anesthesiology Progress Note ---
Date of Service November 09, 2021 Anesthesia Post Procedure Vital Signs Vital Signs: Temp Pulse Pulse Resp BP Pulse Ox 11/09/21 21:49 36.5 C 80 18 140/70 96 11/09/21 20:11 36.6 C 62 18 143/72 H 96 11/09/21 19:20 36.5 C 62 16 137/80 93 11/09/21 18:50 37 C 61 16 130/78 95 11/09/21 18:45 36.5 C 60 15 137/84 98 11/09/21 18:35 62 13 135/83 99 11/09/21 18:25 60 12 136/76 98 11/09/21 18:15 61 12 121/75 96 11/09/21 18:05 61 11 L 121/77 94 11/09/21 17:55 62 12 126/69 92 11/09/21 17:48 36.7 C 60 11 L 113/68 94 11/09/21 11:05 36.5 C 58 L 20 160/90 H 100 Pain Intensity Generalized: Pain Intensity: 4 Transfer of Care Handoff Completed per policy Notes Mental Status: alert / awake / arousable and participated in evaluation Patient Amnestic to Procedure: Yes Nausea / Vomiting: adequately controlled Pain: adequately controlled Airway Patency, RR, SpO2: stable & adequate BP & HR: stable & adequate Hydration State: stable & adequate Anesthetic Complications: no major complications apparent and Pt Satisfied with anesthetic care Notes: surgeon requested postop pain block. consented patient's daughter and patient also agreed to procedure. did a right femoral nerve block without incident.
[2021-11-10] MEDS: ACETAMINOPHEN 500 MG TAB PO SCH ×3 (05:44→22:05)
[2021-11-10] MEDS: LEVOTHYROXINE SODIUM 112 MCG TABLET PO SCH (05:44)
[2021-11-10] MEDS: SODIUM CHLORIDE 0.9% 1000ML 1,000 ML IV SCH (06:27)
[2021-11-10 07:43] LABS: Hematocrit (blood only) 30.5 % (42-52); Hemoglobin 10.2 g/dL (14.0-18.0); Mean Corpuscular Hemoglobin 28.8 pg (25-34); Mean Corpuscular Hgb Conc 33.4 g/dL (32-36); Mean Corpuscular Volume 86.2 fL (80-100); Mean Platelet Volume 9.1 fL (7.4-10.4); Platelet Count 197 K/uL (130-400); RDW Coefficient of Variation 14.7 % (11.5-14.5); RDW Standard Deviation 46.5 fL (36.4-46.3); Red Blood Count 3.54 M/uL (4.7-6.1); White Blood Count 10.22 K/uL (4.8-10.8)
--- NOTE | 2021-11-10 07:46 | Hospitalist Consultation ---
Date of Consultation November 10, 2021 Assessment & Plan (1) Infection of total knee replacement: POD#1 s/p Explantation of Right Total Knee replacement femoral tibial and patellar components and Placement of molded articulated antibiotic cement spacer, Synovectomy and debridement bone and cement. Michael Guillen MD EBL 40cc Pain management/PT/OT/DVT prophylaxis per surgery -- Eliquis to be resumed this morning per orthopedics On ceftriaxone 2gm IV Culture swabs x2, tissue cultures multiple, tissue for white blood cell, frozen section --> monitor WBC wnl 10.2k, afebrile Consultation for ID for friday planned by orthopedics (2) Paroxysmal A-fib: Hx paroxysmal, prior event monitor Prior event monitor obtainded which showed paroxysmal atrial fibrillation, longest episode more than 2 hours, peak heart rate 117 and he was started on Eliquis at that time. Eliquis resumed this morning per orthopedics (3) H/O valvular heart disease: Noted murmur on exam -- Hx MR, MD, TR follows with Dr Amaya. [facility] 02/2021: Paroxysmal A. fib, peak heart rate 117, longest episode >2 hours, frequent PVCs, no arrhythmia correlate with symptoms Lexiscan SPECT 12/2020: Negative for ischemia, EF 69% (4) HTN (hypertension): BP stable, on 4 medications --> typically maintained on amlodipine 10mg, propranolol 40mg QPM, telmisartan 80mg QPM (already given last night, Cr stable) (5) On anticoagulant therapy: noted, resumed (6) Hypothyroidism: Continue levothyroxine 100mcg/112mcg alternating States just increased Synthroid to 112mcg 4x/week from 3x/ week as TSH checked by PCP in past 2 weeks (hx paroxysmal afib) (7) HLD (hyperlipidemia): continue atorvastatin 10mg QPM (8) GERD (gastroesophageal reflux disease): noted hx Barretts On protonix 40mg BID, continued (9) AAA (abdominal aortic aneurysm): noted, routine surveillence Also with hx depression -- on buproprion 300mg, duloxetine 60mg (suspect also for pain) Thank you for allowing hospitalist service to participate in the care of Mr Ohara. Will follow along for now. Supervising Physician Co-Signing Physician Notes PA Supervision Note: I personally saw and examined the patient. I verified all hopkins points and agree with ARMOND Sheppard with the following exceptions and/or additions: S-patient feeling very well, pain is controlled. Denies chest pains or shortness of breath, no nausea. History and ROS reviewed as above O- Vitals reviewed Gen: AAOx3, NAD HEENT: Anicteric sclerae, EOMI CV: RRR 2/6 systolic murmur at the apex nl S1S2 Pulm: CTAB no wcr Abd: +BS soft NT ND no masses or hernias Ext: No edema, right lower extremity in Rony wrap with dressing not removed Skin: No rashes, warm/dry Neuro: Full strength throughout Labs and rads reviewed A/B-69-eux[age]-old male with history as above, here for infected knee prosthesis which is now status post removal Remains on ceftriaxone Follow-up intraoperative joint fluid cultures Await infectious disease consultation History of Present Illness Reason for Consultation: medical management Requesting Physician: Dr Guillen Attending Physician: Michael Guillen MD History of Present Illness 81yo male with PMHx AAA (4.3cm thoracic ascending 10/2019), paroxysmal afib on El iquis (also with felt prior hx retinal artery occlusive event), vavular heart disease, HTN, HLD, hx colon cancer (s/p resection 2014), GERD, hypothyroidism presented for infected L total knee replacement. Had been having ongoing pain x 6 months. Aspiration in office per note with alpha defensin positive with white count of 8K and 80% polys. Cx w/o growth. Seen resting in bed 355-2 POD#1. Just had worked with OT/PT. Doing well. Pain controlled. Eating/drinking and moving his bowels. Eliquis resumed this morning for DVT prophylaxis and his history of atrial fibrillation. He notes Dr Amaya told him no need for aspirin. Hx possible retinal artery occlusion felt thromboembolic. On ceftriaxone IV and awaiting cultures presently.He is aware of ID consultation for Friday and monitoring of cultures. No fever/chills, chest pain, shortness of breath, abdominal pain, nausea or vomiting at this time. Recently checked TSh last week with his PCP and states he had Synthroid changed and is now taking 112mcg 4x/week and the 100mcg 3x/week. Previously had been taking opposite. Takes 100mcg Friday, Friday, . Known murmur. Questions/concerns addressed at this time. Allergies Allergy/AdvReac Type Severity Reaction Status Date / Time No Known Drug Allergies Allergy Verified 11/09/21 10:44 Home Medications Medication Instructions Recorded Confirmed Type cyanocobalamin (vitamin B-12) 1,000 mcg PO QAM tab 02/07/20 11/09/21 History 1,000 mcg tablet amlodipine 10 mg tablet (Norvasc) 10 mg PO QPM 02/10/20 11/09/21 History atorvastatin 10 mg tablet (Lipitor) 10 mg PO QPM 02/10/20 11/09/21 History duloxetine 60 mg capsule,delayed 60 mg PO QPM 02/10/20 11/09/21 History release (Cymbalta) levothyroxine 112 mcg tablet 112 mcg PO UD 02/10/20 11/09/21 History (Synthroid) multivitamin (Multiple Vitamins) 1 tab PO QAM 02/10/20 11/09/21 History telmisartan 80 mg tablet (Micardis) 80 mg PO QPM 02/10/20 11/09/21 History zinc acetate 1 cap PO QAM 11/23/20 11/09/21 History esomeprazole magnesium 40 mg 40 mg PO BID cap 01/09/21 11/09/21 History capsule,delayed release (Nexium) levothyroxine 100 mcg capsule 100 mcg PO UD 03/15/21 11/09/21 History propranolol 40 mg tablet 40 mg PO QPM tab 03/15/21 11/09/21 History bupropion HCl 300 mg 24 hr tablet, 300 mg PO QAM 07/16/21 11/09/21 History extended release (Wellbutrin XL) apixaban 5 mg tablet (Eliquis) 5 mg PO BID #60 tab 08/13/21 11/09/21 Rx mometasone 0.1 % topical solution 1 applic TOPICAL DAILY PRN #30 ml 09/06/21 11/09/21 Rx cetirizine 10 mg tablet (Zyrtec) 10 mg PO QAM 11/01/21 11/09/21 History isosorbide mononitrate 30 mg 30 mg PO QAM 11/01/21 11/09/21 History tablet,extended release 24 hr Patient History Medical History AAA (abdominal aortic aneurysm) 4.3 cm 10/2019, follows with [facility] cardiology Anemia Hgb 11 over past 3 months Atrial fibrillation per records -- on eliquis - 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, follows with ophthalmology Surgical History History of appendectomy History of bowel resection 08/2015 complicated by presence of small tumor requiring patient undergoing surgery soon in post-op period due to epidural catheter coiling around tumor History of cervical spinal surgery x 2 surgeries - limited ROM up/down, side to side @ [facility] History of colonoscopy History of esophagogastroduodenoscopy (EGD) History of hernia repair History of left knee replacement History of lumbar surgery 2009 and 2011 [facility] History of right knee joint replacement History of shoulder surgery Rt x 2, Lt x 2 Family History Father Hypertension Heart disease Sister Breast cancer Liver cancer Mother Breast cancer Other No family history of adverse response to anesthesia No family history of bleeding disorder Social History Smoking Status: Never smoker Tobacco Type: Cigarettes packs per day: 1; Years Smoked: 25; Smoking End Date: 1977; Second Hand Exposure: No; Do You Dip or Chew Tobacco: No; Tobacco Cessation Education Requested by Patient: No Hx Alcohol Use: Yes Alcohol Intake Frequency Comment: 2 drinks/week Hx Substance Use: No Preferred Language: Cambodian Communication Ability: Effective Box Spinner Required: No Beliefs That Will Affect Care: None marital status: Current Living Situation: Spouse current occupational status: retired Feels Safe at Home: Yes Safety Concerns: Feels Safe At This Time Assistive Devices: Walker Review of Systems Review of Systems: All systems reviewed & are unremarkable except as noted in HPI & below Physical Exam Physical Exam: General : WN/WD male laying flat in bed resting after finishing up with physical therapy, NAD Eyes anicteric, pupils equal and reactive to light ENT: trachea midline, no deviation Resp: CTAB, diminished in bases, no w/c/r, on room air CV: sinus kimberli, +systolic murmur, no calf tenderness, pulses palpable, no pedal edema, cap refil wnl GI: +BS, soft, non-tender : no fuentes MSK/Neuro: R knee immobilizer in place, toes mobile, NVI,no focal deficit Psych: AOx3, pleasant and cooperative Skin: warm , dry Results & Data Results & Data ([facility]) Vital Signs (Past 12 Hours) Vital Signs Temp Pulse Pulse Resp BP Pulse Ox 11/10/21 07:26 36.4 C L 56 L 20 138/72 93 11/10/21 03:20 36.6 C 70 18 145/72 H 96 11/09/21 22:36 36.6 C 75 18 144/79 H 97 11/09/21 21:49 36.5 C 80 18 140/70 96 11/09/21 20:11 36.6 C 62 18 143/72 H 96 Laboratory Results 11/10/21 11/10/21 Range/Units 07:14 07:14 WBC 10.22 (4.8-10.8) K/uL RBC 3.54 L (4.7-6.1) M/uL Hgb 10.2 L (14.0-18.0) g/dL Hct 30.5 L (42-52) % MCV 86.2 (80-100) fL MCH 28.8 (25-34) pg MCHC 33.4 (32-36) g/dL RDW Std Deviation 46.5 H (36.4-46.3) fL RDW Coeff of Redd 14.7 H (11.5-14.5) % Plt Count 197 (130-400) K/uL MPV 9.1 (7.4-10.4) fL Sodium 136 (136-145) mmol/L Potassium 4.3 (3.5-5.1) mmol/L Chloride 104 (98-107) mmol/L Carbon Dioxide 24 (21-32) mmol/L Anion Gap 8 (3-11) BUN 25 H (6-23) mg/dl Creatinine 1.00 (0.6-1.4) mg/dl Est Cr Clr Drug Dosing 58.9 ml/min Est GFR ( Amer) 82.0 ml/min Est GFR (Non-Af Amer) 70.8 ml/min BUN/Creatinine Ratio 25.0 H (10-20) Glucose 132 H (70-99(Fasting)) mg/dl Calcium 8.8 (8.5-10.1) mg/dl Diagnostic Findings Knee X-Ray 11/09/21 17:51 TWO VIEWS RIGHT KNEE CLINICAL HISTORY: Postoperative examination. FINDINGS: AP and crosstable lateral portable views of the right knee are obtained. A right knee arthroplasty is in near anatomic alignment. There has been undersurface remodeling of the patella. No acute fracture is seen. There are expected postoperative changes around the knee including skin clips, a surgical drain, soft tissue edema, and subcutaneous gas. IMPRESSION: Expected postoperative changes status post right knee arthroplasty. No acute fracture is seen. ACT 112: Negative or not required by law. Electronically signed by: Vitaly Sunshine M.D. 11/09/2021 7:05 PM PG Care Time/CCT Total # of Minutes Spent Total Time Spent with Patient: Total time spent is greater than 50% in coordination of care (as documented) at patient's floor/unit and/or counseling patient: Coding Level of Care Code 85231 Inpt Consult Level 3 Diagnoses Infection of total knee replacement T84.59XD; Z96.659 Encounter type: subsequent encounter HTN (hypertension) I10 H/O valvular heart disease Z86.79 On anticoagulant therapy Z79.01 AAA (abdominal aortic aneurysm) I71.4 Hypothyroidism E03.9 HLD (hyperlipidemia) E78.5 GERD (gastroesophageal reflux disease) K21.9 Paroxysmal A-fib I48.0 (1) Infection of total knee replacement Encounter type: subsequent encounter Qualified Code(s): T84.59XD - Infection and inflammatory reaction due to other internal joint prosthesis, subsequent encounter; Z96.659 - Presence of unspecified artificial knee joint
[2021-11-10 08:12] LABS: Calcium 8.8 mg/dl (8.5-10.1); Creatinine Clr Calc Pharmacy 58.9 ml/min; Est GFR (Non-African American) 70.8 ml/min; Potassium 4.3 mmol/L (3.5-5.1)
[2021-11-10] MEDS: ISOSORBIDE MONO EXTENDED REL 30 MG TABCR PO SCH (09:13)
[2021-11-10] MEDS: CYANOCOBALAMIN (B-12) 500 MCG TABLET PO SCH (09:13)
[2021-11-10] MEDS: buPROPion XL 300 MG TABCR PO SCH (09:13)
[2021-11-10] MEDS: APIXABAN 5 MG TABLET PO SCH ×2 (09:13→20:44)
[2021-11-10] MEDS: DOCUSATE SODIUM 100 MG CAP PO SCH ×2 (09:13→20:45)
[2021-11-10] MEDS: PANTOprazole 40 MG TAB PO SCH ×2 (09:13→20:45)
[2021-11-10] MEDS: CETIRIZINE HCL 10 MG TABLET PO SCH (09:13)
[2021-11-10] MEDS: MULTIVITAMIN TAB PO SCH (09:14)
[2021-11-10] MEDS: cefTRIAXone SODIUM 2,000 MG in DEXTROSE 5% 50 ML IV SCH (09:16)
--- NOTE | 2021-11-10 10:26 | Orthopedic Progress Note ---
Date of Service November 10, 2021 Assessment & Plan (1) Infection of total knee replacement: Plan: Postop day 1 status post explantation right TKA hardware. Patient history of An 81-year-old male who had bilateral minimally invasive total knee replacements done in 2005. He did well for many years until this last year when he developed chronic pain and swelling in his right knee, and failed conservative management. Because of ongoing pain, workup included a bone scan, which demonstrates some generalized increased uptake, but no evidence of osteomyelitis. There was some increased signal activity compared to his opposite knee. The serum white blood cell count was normal. The erythrocyte sedimentation rate was high normal, the CRP was elevated over 2. The knee joint aspirate demonstrated alpha-defensin positive test, a white blood cell count ove r 7000, which would be consistent with septic knee. The antigens were positive for Staphylococcus; however, the culture was negative. The radiographs demonstrate no clear evidence of any loosening of a cemented posterior stabilized knee replacement. During the procedure,there was evidence of osteolysis around the superior flange of the femoral component, posterior condyles of the femoral component had significant osteolysis around both the posterior femoral condyles, there was some osteolysis around the tibia in certain areas and there was a small area of osteolysis under the patella. PT/OT protocols. Weightbearing as tolerated right lower extremity. Ambulation with immobilizer on at this time. Immobilizer may be off with range of motion exercises and sitting in a chair. DVT prophylaxis-Eliquis 5 mg p.o. twice daily restarted today. SCDs, ALLYSSA mueller. Pain management as written. Cultures negative to date. Continue Rocephin 2 g IV daily. We will plan for infectious disease consult starting tomorrow although they do not do consults here on the weekend. Hopefully plan for ID consult to happen on Friday or Friday of this week. At that time culture results will be well over 48 hours for them to assess. Initial plans will be for long-term IV antibiotics for 6 weeks unless otherwise advised by infectious disease team. Admission and Anticipated Discharge Date Admission Date: November 09, 2021 Subjective Postop day 1 Patient sitting in his chair at the bedside. He is just about to start his physical therapy session. He apparently went through his occupational therapy session this morning and did very well. No complaints this morning. Pain is controlled. Denies shortness of breath, chest pain, lightheadedness. Physical Exam Physical Exam: Dressings are clean, dry, and intact. Calves are soft nontender. Neurovascular intact. Toes are mobile. Results & Data ([facility]) Vital Signs (Past 12 Hours) Vital Signs Temp Pulse Pulse Resp BP Pulse Ox 11/10/21 07:26 36.4 C L 56 L 20 138/72 93 11/10/21 03:20 36.6 C 70 18 145/72 H 96 11/09/21 22:36 36.6 C 75 18 144/79 H 97 Laboratory Results Laboratory Results WBC 10.22 K/uL (4.8-10.8) 11/10/21 07:14 RBC 3.54 M/uL (4.7-6.1) L 11/10/21 07:14 Hgb 10.2 g/dL (14.0-18.0) L 11/10/21 07:14 Hct 30.5 % (42-52) L 11/10/21 07:14 MCV 86.2 fL (80-100) 11/10/21 07:14 MCH 28.8 pg (25-34) 11/10/21 07:14 MCHC 33.4 g/dL (32-36) 11/10/21 07:14 RDW Std Deviation 46.5 fL (36.4-46.3) H 11/10/21 07:14 RDW Coeff of Redd 14.7 % (11.5-14.5) H 11/10/21 07:14 Plt Count 197 K/uL (130-400) 11/10/21 07:14 MPV 9.1 fL (7.4-10.4) 11/10/21 07:14 Sodium 136 mmol/L (136-145) 11/10/21 07:14 Potassium 4.3 mmol/L (3.5-5.1) 11/10/21 07:14 Chloride 104 mmol/L (98-107) 11/10/21 07:14 Carbon Dioxide 24 mmol/L (21-32) 11/10/21 07:14 Anion Gap 8 (3-11) 11/10/21 07:14 BUN 25 mg/dl (6-23) H 11/10/21 07:14 Creatinine 1.00 mg/dl (0.6-1.4) 11/10/21 07:14 Est Cr Clr Drug Dosing 58.9 ml/min 11/10/21 07:14 Est GFR ( Amer) 82.0 ml/min 11/10/21 07:14 Est GFR (Non-Af Amer) 70.8 ml/min 11/10/21 07:14 BUN/Creatinine Ratio 25.0 (10-20) H 11/10/21 07:14 Glucose 132 mg/dl (70-99(Fasting)) H 11/10/21 07:14 Calcium 8.8 mg/dl (8.5-10.1) 11/10/21 07:14 SARS-CoV-2, RNA, NAAT NEGATIVE (NEGATIVE) 11/09/21 10:40 Impressions Knee X-Ray 11/09/21 17:51 TWO VIEWS RIGHT KNEE CLINICAL HISTORY: Postoperative examination. FINDINGS: AP and crosstable lateral portable views of the right knee are obtained. A right knee arthroplasty is in near anatomic alignment. There has been undersurface remodeling of the patella. No acute fracture is seen. There are expected postoperative changes around the knee including skin clips, a surgical drain, soft tissue edema, and subcutaneous gas. IMPRESSION: Expected postoperative changes status post right knee arthroplasty. No acute fracture is seen. ACT 112: Negative or not required by law. Electronically signed by: Vitaly Sunshine M.D. 11/09/2021 7:05 PM (1) Infection of total knee replacement Encounter type: subsequent encounter Qualified Code(s): T84.59XD - Infection and inflammatory reaction due to other internal joint prosthesis, subsequent encounter; Z96.659 - Presence of unspecified artificial knee joint
[2021-11-10] MEDS: oxyCODONE HCL IR 5 MG TAB (IMMEDIATE RELEASE) PO PRN ×3 (11:41→20:43)
[2021-11-10] MEDS: ATORVASTATIN 10 MG TAB PO SCH (20:44)
[2021-11-10] MEDS: amLODIPine BESYLATE 5 MG TAB PO SCH (20:44)
[2021-11-10] MEDS: SENNA 8.6 MG TAB PO SCH (20:45)
[2021-11-10] MEDS: PROPRANOLOL HCL 20 MG TAB PO SCH (20:46)
[2021-11-10] MEDS: TELMISARTAN 20 MG TAB PO SCH (20:46)
[2021-11-10] MEDS: DULoxetine HCL 60 MG CAP PO SCH (20:53)
[2021-11-11] MEDS: LEVOTHYROXINE SODIUM 100 MCG TABLET PO SCH (06:01)
[2021-11-11] MEDS: ACETAMINOPHEN 500 MG TAB PO SCH ×3 (06:01→20:15)
[2021-11-11] MEDS: oxyCODONE HCL IR 5 MG TAB (IMMEDIATE RELEASE) PO PRN ×3 (06:01→20:14)
[2021-11-11 07:55] LABS: Hematocrit (blood only) 31.1 % (42-52); Hemoglobin 10.3 g/dL (14.0-18.0); Mean Corpuscular Hemoglobin 29.4 pg (25-34); Mean Corpuscular Hgb Conc 33.1 g/dL (32-36); Mean Corpuscular Volume 88.9 fL (80-100); Platelet Count 167 K/uL (130-400); RDW Coefficient of Variation 15.1 % (11.5-14.5); RDW Standard Deviation 48.9 fL (36.4-46.3); White Blood Count 7.86 K/uL (4.8-10.8)
--- NOTE | 2021-11-11 08:04 | Hospitalist Progress Note ---
Date of Service November 11, 2021 Assessment & Plan (1) Infection of total knee replacement: Plan: POD#1 s/p Explantation of Right Total Knee replacement femoral tibial and patellar components and Placement of molded articulated antibiotic cement spacer, Synovectomy and debridement bone and cement. Michael Guillen MD EBL 40cc Pain management/PT/OT/DVT prophylaxis per surgery -- Eliquis to be resumed this morning per orthopedics On ceftriaxone 2gm IV. MRSA nasal negative, no hx mRSA Culture swabs x2, tissue cultures multiple, tissue for white blood cell, frozen section --> monitor WBC wnl, afebrile Eating/drinking/moving bowels I checked CRP, improved from prior value in August Cultures pending and monitor-- Per ortho, ID consultation for tomorrow and then placement of PICC line based on recommendations Hospitalist service will sign off but monitor with chart checks in morning. Call with any questions /concerns. (2) Paroxysmal A-fib: Plan: Hx paroxysmal, prior event monitor Prior event monitor obtained which showed paroxysmal atrial fibrillation, longest episode more than 2 hours, peak heart rate 117 and he was started on Eliquis at that time. Eliquis resumed post-op (3) H/O valvular heart disease: Plan: Noted murmur on exam -- Hx MR, MI, TR follows with Dr Amaya. [facility] 02/2021: Paroxysmal A. fib, peak heart rate 117, longest episode >2 hours, frequent PVCs, no arrhythmia correlate with symptoms Lexiscan SPECT 12/2020: Negative for ischemia, EF 69% (4) HTN (hypertension): Plan: BP stable, on 4 medications --> typically maintained on amlodipine 10mg, propranolol 40mg QPM, telmisartan 80mg QPM BP stable 150/80 and in setting of pain (5) On anticoagulant therapy: Plan: noted, resumed (6) Hypothyroidism: Plan: Continue levothyroxine 100mcg/112mcg alternating States just increased Synthroid to 112mcg 4x/week from 3x/ week as TSH checked by PCP in past 2 weeks (hx paroxysmal afib) (7) HLD (hyperlipidemia): Plan: continue atorvastatin 10mg QPM (8) GERD (gastroesophageal reflux disease): Plan: noted hx Barretts On protonix 40mg BID, continued (9) AAA (abdominal aortic aneurysm): Plan: noted, routine surveillence Also with hx depression -- on buproprion 300mg, duloxetine 60mg (suspect also for pain) Plan: Thank you for allowing hospitalist service to participate in the care of Mr Ohara.Will sign off but monitor with chart checks in AM. Please call with any questions/concerns. Admission and Anticipated Discharge Date Admission Date: November 09, 2021 Subjective Patient evaluated this morning. Doing well. Little more pain today but no further numbness. NVI. Eating/drinking. Not worked with therapy today. Planning for ID consultation tomorrow. Discussed CRP improved. Cultures pending. Ortho just evaluated and discussed chart check/following along as needed but may sign off at this time. Patient denies any fever, chills, chest pain, shortness of breath, abdominal pain, visual changes or issues with urination. Questions/concerns addressed at this time. Review of Systems Review of Systems: All systems reviewed & are unremarkable except as noted in HPI & below Physical Exam Physical Exam: General : WN/WD male laying flat in bed resting, NAD Eyes anicteric, pupils equal and reactive to light ENT: trachea midline, no deviation Resp: CTAB, diminished in bases, no w/c/r, on room air CV: sinus kimberli, +systolic murmur at apex, no calf tenderness, pulses palpable, no pedal edema, cap refil wnl GI: +BS, soft, non-tender : no fuentes MSK/Neuro: R knee immobilizer in place, (dressing changed by ortho PA directly prior to eval), toes mobile, NVI,no focal deficit, hemovac w/ green light present Psych: AOx3, pleasant and cooperative Skin: warm , dry Results & Data Results & Data ([facility]) Vital Signs (Past 12 Hours) Vital Signs Temp Pulse Resp BP Pulse Ox 11/11/21 07:32 36.6 C 57 L 18 150/80 H 94 11/11/21 03:12 36.7 C 60 18 145/80 H 96 11/10/21 22:50 37.2 C 65 18 156/85 H 94 Laboratory Results 11/11/21 11/11/21 11/10/21 Range/Units 07:25 07:25 16:19 WBC 7.86 (4.8-10.8) K/uL RBC 3.50 L (4.7-6.1) M/uL Hgb 10.3 L (14.0-18.0) g/dL Hct 31.1 L (42-52) % MCV 88.9 (80-100) fL MCH 29.4 (25-34) pg MCHC 33.1 (32-36) g/dL RDW Std Deviation 48.9 H (36.4-46.3) fL RDW Coeff of Redd 15.1 H (11.5-14.5) % Plt Count 167 (130-400) K/uL MPV 9.0 (7.4-10.4) fL Sodium 136 (136-145) mmol/L Potassium 4.0 (3.5-5.1) mmol/L Chloride 103 (98-107) mmol/L Carbon Dioxide 26 (21-32) mmol/L Anion Gap 7 (3-11) BUN 28 H (6-23) mg/dl Creatinine 1.09 (0.6-1.4) mg/dl Est Cr Clr Drug Dosing 54.1 ml/min Est GFR ( Amer) 73.9 ml/min Est GFR (Non-Af Amer) 63.8 ml/min BUN/Creatinine Ratio 25.7 H (10-20) Glucose 93 (70-99(Fasting)) mg/dl Calcium 9.0 (8.5-10.1) mg/dl C-Reactive Protein 0.67 H (0-0.5) mg/dl Nasal Screen MRSA (PCR) Negative (Negative) PG Care Time/CCT Total # of Minutes Spent Total Time Spent with Patient: Total time spent is greater than 50% in coordination of care (as documented) at patient's floor/unit and/or counseling patient: Coding Level of Care Code 63414 Subseq Hosp Care Lvl 1 Diagnoses Infection of total knee replacement T84.59XD; Z96.659 Encounter type: subsequent encounter Paroxysmal A-fib I48.0 H/O valvular heart disease Z86.79 HTN (hypertension) I10 On anticoagulant therapy Z79.01 Hypothyroidism E03.9 HLD (hyperlipidemia) E78.5 GERD (gastroesophageal reflux disease) K21.9 AAA (abdominal aortic aneurysm) I71.4 (1) Infection of total knee replacement Encounter type: subsequent encounter Qualified Code(s): T84.59XD - Infection and inflammatory reaction due to other internal joint prosthesis, subsequent encounter; Z96.659 - Presence of unspecified artificial knee joint
[2021-11-11] MEDS: CYANOCOBALAMIN (B-12) 500 MCG TABLET PO SCH (08:10)
[2021-11-11] MEDS: PANTOprazole 40 MG TAB PO SCH ×2 (08:10→20:16)
[2021-11-11] MEDS: buPROPion XL 300 MG TABCR PO SCH (08:10)
[2021-11-11] MEDS: CETIRIZINE HCL 10 MG TABLET PO SCH (08:10)
[2021-11-11] MEDS: ISOSORBIDE MONO EXTENDED REL 30 MG TABCR PO SCH (08:10)
[2021-11-11] MEDS: MULTIVITAMIN TAB PO SCH (08:10)
[2021-11-11] MEDS: DOCUSATE SODIUM 100 MG CAP PO SCH ×2 (08:10→20:15)
[2021-11-11] MEDS: APIXABAN 5 MG TABLET PO SCH ×2 (08:10→20:16)
[2021-11-11 08:11] LABS: BUN Creatinine Ratio 25.7 (10-20); C Reactive Protein 0.67 mg/dl (0-0.5); Creatinine Clr Calc Pharmacy 54.1 ml/min; Est GFR (African American) 73.9 ml/min; Est GFR (Non-African American) 63.8 ml/min
[2021-11-11] MEDS: cefTRIAXone SODIUM 2,000 MG in DEXTROSE 5% 50 ML IV SCH (09:19)
--- NOTE | 2021-11-11 10:12 | Orthopedic Progress Note ---
Date of Service November 11, 2021 Assessment & Plan (1) Infection of total knee replacement: Plan: Postop day 2 status post explantation right TKA hardware. 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 He did well for many years until this last year when he developed chronic pain and swelling in his right knee, and failed conservative management. Because of ongoing pain, workup included a bone scan, which demonstrates some generalized increased uptake, but no evidence of osteomyelitis. There was some increased signal activity compared to his opposite knee. The serum white blood cell count was normal. The erythrocyte sedimentation rate was high normal, the CRP was elevated over 2. The knee joint aspirate demonstrated alpha-defensin positive test, a white blood cell count o chuckie 7000, which would be consistent with septic knee. The antigens were positive for Staphylococcus; however, the culture was negative. The radiographs demonstrate no clear evidence of any loosening of a cemented posterior stabilized knee replacement. During the procedure,there was evidence of osteolysis around the superior flange of the femoral component, posterior condyles of the femoral component had significant osteolysis around both the posterior femoral condyles, there was some osteolysis around the tibia in certain areas and there was a small area of osteolysis under the patella.* PT/OT protocols. Weightbearing as tolerated right lower extremity. Ambulation with immobilizer on at this time. Immobilizer may be off with range of motion exercises and sitting in a chair. DVT prophylaxis- Eliquis 5 mg p.o. twice daily restarted today. SCDs, ALLYSSA mueller. Pain management as written. Cultures negative to date. CRP down to .67 from 2.46 in August. Continue Rocephin 2 g IV daily. Hopefully plan for ID consult to happen on Friday or Friday of this week. At that time culture results will be well over 48 hours for them to assess. Initial plans will be for long-term IV antibiotics for 6 weeks unless otherwise advised by infectious disease team. ID consult placed today. Appreciate Medical Service input. Follow as necessary. Admission and Anticipated Discharge Date Admission Date: November 09, 2021 Subjective POD 2 Pt sleeping upon arrival. Easily awoken. No complaints this AM. Pain controlled. Physical Exam Physical Exam: Drain removed by nursing earlier this AM. Full dressing removed by myself. MORENA dressing intact and functioning. Calves soft, NT. NV intact. Toes mobile. Results & Data ([facility]) Vital Signs (Past 12 Hours) Vital Signs Temp Pulse Resp BP Pulse Ox 11/11/21 07:32 36.6 C 57 L 18 150/80 H 94 11/11/21 03:12 36.7 C 60 18 145/80 H 96 11/10/21 22:50 37.2 C 65 18 156/85 H 94 Laboratory Results 11/11/21 11/11/21 11/10/21 Range/Units 07:25 07:25 16:19 WBC 7.86 (4.8-10.8) K/uL RBC 3.50 L (4.7-6.1) M/uL Hgb 10.3 L (14.0-18.0) g/dL Hct 31.1 L (42-52) % MCV 88.9 (80-100) fL MCH 29.4 (25-34) pg MCHC 33.1 (32-36) g/dL RDW Std Deviation 48.9 H (36.4-46.3) fL RDW Coeff of Redd 15.1 H (11.5-14.5) % Plt Count 167 (130-400) K/uL MPV 9.0 (7.4-10.4) fL Sodium 136 (136-145) mmol/L Potassium 4.0 (3.5-5.1) mmol/L Chloride 103 (98-107) mmol/L Carbon Dioxide 26 (21-32) mmol/L Anion Gap 7 (3-11) BUN 28 H (6-23) mg/dl Creatinine 1.09 (0.6-1.4) mg/dl Est Cr Clr Drug Dosing 54.1 ml/min Est GFR ( Amer) 73.9 ml/min Est GFR (Non-Af Amer) 63.8 ml/min BUN/Creatinine Ratio 25.7 H (10-20) Glucose 93 (70-99(Fasting)) mg/dl Calcium 9.0 (8.5-10.1) mg/dl C-Reactive Protein 0.67 H (0-0.5) mg/dl Nasal Screen MRSA (PCR) Negative (Negative) (1) Infection of total knee replacement Encounter type: subsequent encounter Qualified Code(s): T84.59XD - Infection and inflammatory reaction due to other internal joint prosthesis, subsequent encounter; Z96.659 - Presence of unspecified artificial knee joint
[2021-11-11] MEDS: amLODIPine BESYLATE 5 MG TAB PO SCH (20:14)
[2021-11-11] MEDS: DULoxetine HCL 60 MG CAP PO SCH (20:14)
[2021-11-11] MEDS: SENNA 8.6 MG TAB PO SCH (20:15)
[2021-11-11] MEDS: ATORVASTATIN 10 MG TAB PO SCH (20:16)
[2021-11-11] MEDS: PROPRANOLOL HCL 20 MG TAB PO SCH (20:16)
[2021-11-11] MEDS: TELMISARTAN 20 MG TAB PO SCH (20:17)
[2021-11-12] MEDS: oxyCODONE HCL IR 5 MG TAB (IMMEDIATE RELEASE) PO PRN ×3 (00:20→22:07)
[2021-11-12] MEDS: ACETAMINOPHEN 500 MG TAB PO SCH ×3 (05:49→20:24)
[2021-11-12] MEDS: LEVOTHYROXINE SODIUM 112 MCG TABLET PO SCH (05:49)
--- NOTE | 2021-11-12 06:53 | Orthopedic Progress Note ---
Date of Service November 12, 2021 Assessment & Plan (1) Infection of total knee replacement: Plan: Postop day 3 status post explantation right TKA hardware. 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 He did well for many years until this last year when he developed chronic pain and swelling in his right knee, and failed conservative management. Because of ongoing pain, workup included a bone scan, which demonstrates some generalized increased uptake, but no evidence of osteomyelitis. There was some increased signal activity compared to his opposite knee. The serum white blood cell count was normal. The erythrocyte sedimentation rate was high normal, the CRP was elevated over 2. The knee joint aspirate demonstrated alpha-defensin positive test, a white blood cell count o chuckie 7000, which would be consistent with septic knee. The antigens were positive for Staphylococcus; however, the culture was negative. The radiographs demonstrate no clear evidence of any loosening of a cemented posterior stabilized knee replacement. During the procedure,there was evidence of osteolysis around the superior flange of the femoral component, posterior condyles of the femoral component had significant osteolysis around both the posterior femoral condyles, there was some osteolysis around the tibia in certain areas and there was a small area of osteolysis under the patella.* PT/OT protocols. Weightbearing as tolerated right lower extremity. Ambulation with immobilizer on at this time. Immobilizer may be off with range of motion exercises and sitting in a chair. DVT prophylaxis- Eliquis 5 mg p.o. twice daily restarted today. SCDs, ALLYSSA mueller. Pain management as written. Cultures negative to date. CRP down to .67 from 2.46 in August. Continue Rocephin 2 g IV daily. Plan for ID consult to be completed today versus tomorrow. Initial plans will be for long-term IV antibiotics for 6 weeks unless otherwise advised by infectious disease team. ID consult pending Appreciate Medical Service input. Follow as necessary. Admission and Anticipated Discharge Date Admission Date: November 09, 2021 Subjective Patient is postop day #3 explant right total knee with placement of antibiotic spacer. Overall he is doing well. Was having some increased pain yesterday, however has improved some today. No other complaints currently. Denies fever/chills, chest pain, shortness of breath, nausea/vomiting/diarrhea. Review of Systems Review of Systems: All systems reviewed & are unremarkable except as noted in Subjective Physical Exam Physical Exam: Right knee: Mild effusion, no surrounding erythema. Americo superficial wound VAC is in place and functioning. Minimal drainage and window. Dressing to previous Hemovac site is clean, dry, intact. No calf tenderness. Toes are mobile with good dorsiflexion. Distally neurovascular status and sensation intact. Constitutional: well developed and well nourished; no acute distress Results & Data ([facility]) Vital Signs (Past 12 Hours) Vital Signs Temp Pulse Resp BP Pulse Ox 11/11/21 22:33 37.1 C 77 18 137/84 94 11/11/21 20:09 77 174/92 H 96 (1) Infection of total knee replacement Encounter type: subsequent encounter Qualified Code(s): T84.59XD - Infection and inflammatory reaction due to other internal joint prosthesis, subsequent encounter; Z96.659 - Presence of unspecified artificial knee joint
[2021-11-12] MEDS: cefTRIAXone SODIUM 2,000 MG in DEXTROSE 5% 50 ML IV SCH (08:11)
[2021-11-12] MEDS: CETIRIZINE HCL 10 MG TABLET PO SCH (08:12)
[2021-11-12] MEDS: MULTIVITAMIN TAB PO SCH (08:12)
[2021-11-12] MEDS: DOCUSATE SODIUM 100 MG CAP PO SCH ×2 (08:12→20:23)
[2021-11-12] MEDS: CYANOCOBALAMIN (B-12) 500 MCG TABLET PO SCH (08:12)
[2021-11-12] MEDS: buPROPion XL 300 MG TABCR PO SCH (08:12)
[2021-11-12] MEDS: PANTOprazole 40 MG TAB PO SCH ×2 (08:12→20:23)
[2021-11-12] MEDS: ISOSORBIDE MONO EXTENDED REL 30 MG TABCR PO SCH (08:12)
[2021-11-12] MEDS: APIXABAN 5 MG TABLET PO SCH ×2 (08:12→20:23)
[2021-11-12] MEDS: amLODIPine BESYLATE 5 MG TAB PO SCH (20:23)
[2021-11-12] MEDS: PROPRANOLOL HCL 20 MG TAB PO SCH (20:23)
[2021-11-12] MEDS: ATORVASTATIN 10 MG TAB PO SCH (20:23)
[2021-11-12] MEDS: SENNA 8.6 MG TAB PO SCH (20:24)
[2021-11-12] MEDS: TELMISARTAN 20 MG TAB PO SCH (20:24)
[2021-11-12] MEDS: DULoxetine HCL 60 MG CAP PO SCH (20:24)
[2021-11-13] MEDS: LEVOTHYROXINE SODIUM 100 MCG TABLET PO SCH (05:58)
[2021-11-13] MEDS: ACETAMINOPHEN 500 MG TAB PO SCH ×3 (05:58→21:35)
[2021-11-13] MEDS: buPROPion XL 300 MG TABCR PO SCH (08:07)
[2021-11-13] MEDS: PANTOprazole 40 MG TAB PO SCH ×2 (08:08→21:34)
[2021-11-13] MEDS: APIXABAN 5 MG TABLET PO SCH ×2 (08:08→21:35)
[2021-11-13] MEDS: ISOSORBIDE MONO EXTENDED REL 30 MG TABCR PO SCH (08:09)
[2021-11-13] MEDS: DOCUSATE SODIUM 100 MG CAP PO SCH ×2 (08:09→21:36)
[2021-11-13] MEDS: MULTIVITAMIN TAB PO SCH (08:10)
[2021-11-13] MEDS: CYANOCOBALAMIN (B-12) 500 MCG TABLET PO SCH (08:10)
[2021-11-13] MEDS: CETIRIZINE HCL 10 MG TABLET PO SCH (08:11)
--- NOTE | 2021-11-13 08:35 | Orthopedic Progress Note ---
Date of Service November 13, 2021 Assessment & Plan (1) Infection of total knee replacement: Plan: Postop day 4 status post explantation right TKA hardware. 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 He did well for many years until this last year when he developed chronic pain and swelling in his right knee, and failed conservative management. Because of ongoing pain, workup included a bone scan, which demonstrates some generalized increased uptake, but no evidence of osteomyelitis. There was some increased signal activity compared to his opposite knee. The serum white blood cell count was normal. The erythrocyte sedimentation rate was high normal, the CRP was elevated over 2. The knee joint aspirate demonstrated alpha-defensin positive test, a white blood cell count o chuckie 7000, which would be consistent with septic knee. The antigens were positive for Staphylococcus; however, the culture was negative. The radiographs demonstrate no clear evidence of any loosening of a cemented posterior stabilized knee replacement. During the procedure,there was evidence of osteolysis around the superior flange of the femoral component, posterior condyles of the femoral component had significant osteolysis around both the posterior femoral condyles, there was some osteolysis around the tibia in certain areas and there was a small area of osteolysis under the patella.* PT/OT protocols. Weightbearing as tolerated right lower extremity. Ambulation with immobilizer on at this time. Immobilizer may be off with range of motion exercises and sitting in a chair. DVT prophylaxis- Eliquis 5 mg p.o. twice daily restarted today. SCDs, ALLYSSA mueller. Pain management as written. Cultures negative to date. Continue Rocephin 2 g IV daily. Plan for ID consult hopefully today. Initial plans will be for long-term IV antibiotics for 6 weeks unless otherwise advised by infectious disease team. ID consult pending Appreciate Medical Service input. Follow as necessary. Admission and Anticipated Discharge Date Admission Date: November 09, 2021 Subjective Postop day 4 Patient resting comfortably in bed. Awake and alert. No complaints. Pain is controlled. Physical Exam Physical Exam: Americo dressing is clean, dry, and intact. Calves are soft nontender. Neurovascular is intact. Toes are mobile. Results & Data ([facility]) Vital Signs (Past 12 Hours) Vital Signs Temp Pulse Resp BP Pulse Ox 11/13/21 08:06 59 L 147/87 H 11/13/21 07:40 36.3 C L 51 L 16 143/83 H 98 11/12/21 22:57 36.6 C 59 L 18 136/84 94 (1) Infection of total knee replacement Encounter type: subsequent encounter Qualified Code(s): T84.59XD - Infection and inflammatory reaction due to other internal joint prosthesis, subsequent encounter; Z96.659 - Presence of unspecified artificial knee joint
[2021-11-13] MEDS: cefTRIAXone SODIUM 2,000 MG in DEXTROSE 5% 50 ML IV SCH (09:35)
[2021-11-13] MEDS: oxyCODONE HCL IR 5 MG TAB (IMMEDIATE RELEASE) PO PRN (16:57)
[2021-11-13] MEDS: amLODIPine BESYLATE 5 MG TAB PO SCH (21:34)
[2021-11-13] MEDS: TELMISARTAN 20 MG TAB PO SCH (21:35)
[2021-11-13] MEDS: SENNA 8.6 MG TAB PO SCH (21:36)
[2021-11-13] MEDS: PROPRANOLOL HCL 20 MG TAB PO SCH (21:36)
[2021-11-13] MEDS: ATORVASTATIN 10 MG TAB PO SCH (21:36)
[2021-11-13] MEDS: DULoxetine HCL 60 MG CAP PO SCH (21:37)
[2021-11-14] MEDS: ACETAMINOPHEN 500 MG TAB PO SCH ×3 (06:00→21:08)
[2021-11-14] MEDS: LEVOTHYROXINE SODIUM 112 MCG TABLET PO SCH (06:00)
[2021-11-14] MEDS: APIXABAN 5 MG TABLET PO SCH ×2 (08:08→21:09)
[2021-11-14] MEDS: PANTOprazole 40 MG TAB PO SCH ×2 (08:08→21:09)
[2021-11-14] MEDS: ISOSORBIDE MONO EXTENDED REL 30 MG TABCR PO SCH (08:08)
[2021-11-14] MEDS: buPROPion XL 300 MG TABCR PO SCH (08:08)
[2021-11-14] MEDS: MULTIVITAMIN TAB PO SCH (08:09)
[2021-11-14] MEDS: DOCUSATE SODIUM 100 MG CAP PO SCH ×2 (08:09→21:09)
[2021-11-14] MEDS: cefTRIAXone SODIUM 2,000 MG in DEXTROSE 5% 50 ML IV SCH (08:09)
[2021-11-14] MEDS: CYANOCOBALAMIN (B-12) 500 MCG TABLET PO SCH (08:09)
[2021-11-14] MEDS: CETIRIZINE HCL 10 MG TABLET PO SCH (08:09)
--- NOTE | 2021-11-14 09:25 | Orthopedic Progress Note ---
Date of Service November 14, 2021 Assessment & Plan (1) Infection of total knee replacement: Plan: Postop day 5 status post explantation right TKA hardware. 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 He did well for many years until this last year when he developed chronic pain and swelling in his right knee, and failed conservative management. Because of ongoing pain, workup included a bone scan, which demonstrates some generalized increased uptake, but no evidence of osteomyelitis. There was some increased signal activity compared to his opposite knee. The serum white blood cell count was normal. The erythrocyte sedimentation rate was high normal, the CRP was elevated over 2. The knee joint aspirate demonstrated alpha-defensin positive test, a white blood cell count o chuckie 7000, which would be consistent with septic knee. The antigens were positive for Staphylococcus; however, the culture was negative. The radiographs demonstrate no clear evidence of any loosening of a cemented posterior stabilized knee replacement. During the procedure,there was evidence of osteolysis around the superior flange of the femoral component, posterior condyles of the femoral component had significant osteolysis around both the posterior femoral condyles, there was some osteolysis around the tibia in certain areas and there was a small area of osteolysis under the patella.* PT/OT protocols. Weightbearing as tolerated right lower extremity. Ambulation with immobilizer on at this time. Immobilizer may be off with range of motion exercises and sitting in a chair. DVT prophylaxis- Eliquis 5 mg p.o. twice daily restarted today. SCDs, ALLYSSA mueller. Pain management as written. Cultures negative to date. Continue Rocephin 2 g IV daily. Plan for ID consult hopefully today. Initial plans will be for long-term IV antibiotics for 6 weeks unless otherwise advised by infectious disease team. ID consult pending Appreciate Medical Service input. Follow as necessary. Admission and Anticipated Discharge Date Admission Date: November 09, 2021 Subjective Postop day 5 Patient sleeping upon arrival. Easily awoken. There had been no forward progress with infectious disease team from [facility]. I called [facility] and discussed the situation this morning with their scheduling team. Apparently they had been short staffed over the last several days. They are now at full staff again and I was told that they would be getting to the sharron rubio's consult today. I discussed this with the patient. PICC line consent was also obtained for likely use in the near future. Patient had no complaints today. Feeling well. Physical Exam Physical Exam: Americo dressing intact and functioning. Scant drainage that has since stopped. Calves are soft and nontender. Neurovascular intact. Toes are mobile. Results & Data ([facility]) Vital Signs (Past 12 Hours) Vital Signs Temp Pulse Resp BP BP Pulse Ox 11/14/21 07:31 36.8 C 51 L 16 151/89 H 95 11/13/21 21:32 36.5 C 64 16 166/87 H 95 (1) Infection of total knee replacement Encounter type: subsequent encounter Qualified Code(s): T84.59XD - Infection and inflammatory reaction due to other internal joint prosthesis, subsequent encounter; Z96.659 - Presence of unspecified artificial knee joint
[2021-11-14] MEDS: oxyCODONE HCL IR 5 MG TAB (IMMEDIATE RELEASE) PO PRN (09:27)
[2021-11-14 10:07] LABS: Basophils # (auto) 0.02 K/uL (0-0.2); Basophils % (auto) 0.3 %; Eosinophils # (auto) 0.17 K/uL (0-0.5); Eosinophils % (auto) 2.3 %; Hemoglobin 10.5 g/dL (14.0-18.0); Immature Granulocytes # (auto) 0.02 K/uL (0.00-0.02); Immature Granulocytes % (auto) 0.3 %; Lymphocytes # (auto) 1.14 K/uL (1.2-3.4); Lymphocytes % (auto) 15.4 %; Mean Corpuscular Hemoglobin 28.8 pg (25-34); Mean Corpuscular Hgb Conc 32.8 g/dL (32-36); Mean Corpuscular Volume 87.9 fL (80-100); Mean Platelet Volume 9.2 fL (7.4-10.4); Monocytes # (auto) 0.82 K/uL (0.11-0.59); Monocytes % (auto) 11.1 %; Neutrophils # (auto) 5.23 K/uL (1.4-6.5); Neutrophils % (auto) 70.6 %; Platelet Count 227 K/uL (130-400); RDW Coefficient of Variation 14.9 % (11.5-14.5); RDW Standard Deviation 47.6 fL (36.4-46.3); Red Blood Count 3.64 M/uL (4.7-6.1)
[2021-11-14 10:25] LABS: BUN Creatinine Ratio 27.2 (10-20); C Reactive Protein 2.72 mg/dl (0-0.5); Creatinine Clr Calc Pharmacy 51.7 ml/min; Est GFR (Non-African American) 60.4 ml/min
[2021-11-14] MEDS: ATORVASTATIN 10 MG TAB PO SCH (21:08)
[2021-11-14] MEDS: DULoxetine HCL 60 MG CAP PO SCH (21:08)
[2021-11-14] MEDS: SENNA 8.6 MG TAB PO SCH (21:08)
[2021-11-14] MEDS: TELMISARTAN 20 MG TAB PO SCH (21:09)
[2021-11-14] MEDS: PROPRANOLOL HCL 20 MG TAB PO SCH (21:09)
[2021-11-14] MEDS: amLODIPine BESYLATE 5 MG TAB PO SCH (21:10)
[2021-11-15] MEDS: LEVOTHYROXINE SODIUM 100 MCG TABLET PO SCH (06:11)
[2021-11-15] MEDS: ACETAMINOPHEN 500 MG TAB PO SCH ×3 (06:11→21:27)
[2021-11-15] MEDS: CETIRIZINE HCL 10 MG TABLET PO SCH (08:18)
[2021-11-15] MEDS: CYANOCOBALAMIN (B-12) 500 MCG TABLET PO SCH (08:18)
[2021-11-15] MEDS: APIXABAN 5 MG TABLET PO SCH ×2 (08:19→20:14)
[2021-11-15] MEDS: buPROPion XL 300 MG TABCR PO SCH (08:19)
[2021-11-15] MEDS: MULTIVITAMIN TAB PO SCH (08:19)
[2021-11-15] MEDS: ISOSORBIDE MONO EXTENDED REL 30 MG TABCR PO SCH (08:19)
[2021-11-15] MEDS: DOCUSATE SODIUM 100 MG CAP PO SCH ×2 (08:19→20:10)
[2021-11-15] MEDS: PANTOprazole 40 MG TAB PO SCH ×2 (08:19→20:13)
[2021-11-15] MEDS: cefTRIAXone SODIUM 2,000 MG in DEXTROSE 5% 50 ML IV SCH (08:24)
--- NOTE | 2021-11-15 10:54 | Orthopedic Progress Note ---
Date of Service November 15, 2021 Assessment & Plan (1) Infection of total knee replacement: Plan: Postop day 6 status post explantation right TKA hardware. 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 He did well for many years until this last year when he developed chronic pain and swelling in his right knee, and failed conservative management. Because of ongoing pain, workup included a bone scan, which demonstrates some generalized increased uptake, but no evidence of osteomyelitis. There was some increased signal activity compared to his opposite knee. The serum white blood cell count was normal. The erythrocyte sedimentation rate was high normal, the CRP was elevated over 2. The knee joint aspirate demonstrated alpha-defensin positive test, a white blood cell count o chuckie 7000, which would be consistent with septic knee. The antigens were positive for Staphylococcus; however, the culture was negative. The radiographs demonstrate no clear evidence of any loosening of a cemented posterior stabilized knee replacement. During the procedure,there was evidence of osteolysis around the superior flange of the femoral component, posterior condyles of the femoral component had significant osteolysis around both the posterior femoral condyles, there was some osteolysis around the tibia in certain areas and there was a small area of osteolysis under the patella.* PT/OT protocols. Weightbearing as tolerated right lower extremity. Ambulation with immobilizer on at this time. Immobilizer may be off with range of motion exercises and sitting in a chair. DVT prophylaxis- Eliquis 5 mg p.o. twice daily restarted today. SCDs, ALLYSSA mueller. Pain management as written. Culture is listed as final showing no growth. Continue Rocephin 2 g IV daily. Plan for ID consult today at 11:30 AM. Initial plans will be for long-term IV antibiotics for 6 weeks unless otherwise advised by infectious disease team. ID consult pending Appreciate Medical Service input. Follow as necessary. Admission and Anticipated Discharge Date Admission Date: November 09, 2021 Subjective Postop day 6 Patient sleeping upon arrival. Easily awoken. [facility] and [facility], patient will be seen by Dr. Patel today at 1130. No new complaints. Pain controlled. Physical Exam Physical Exam: No changes to exam. Americo dressing remains intact. No erythema. Swelling consistent with surgery. Calves soft nontender. Neuro vas intact. Toes mobile. (1) Infection of total knee replacement Encounter type: subsequent encounter Qualified Code(s): T84.59XD - Infection and inflammatory reaction due to other internal joint prosthesis, subsequent encounter; Z96.659 - Presence of unspecified artificial knee joint
[2021-11-15] MEDS ORDERED: VANCOMYCIN CONSULT ACTIVE PRN (13:40)
[2021-11-15] MEDS ORDERED: VANCOMYCIN HCL 1,000 MG in SODIUM CHLORIDE 0.9% 250 ML IV SCH (13:45)
[2021-11-15] MEDS ORDERED: ERTAPENEM SODIUM 10 ML IV SCH (13:45)
[2021-11-15] MEDS ORDERED: VANCOMYCIN HCL 1,750 MG in SODIUM CHLORIDE 0.9% 500 ML IV ONE (14:00)
[2021-11-15] MEDS: ERTAPENEM SODIUM 1,000 MG in SYRINGE 0 ML IV SCH (14:29)
--- NOTE | 2021-11-15 14:37 | Pharmacy Report ---
Pharmacy Vanc AUC Short Note - Date of Service November 15, 2021 - Assessment & Plan Assessment * 81 year old M on ertapenem and vancomycin x6 weeks per ID recommendation for treatment of osteomyelitis / infected R TKA s/p removal of hardware 11/09. * No pertinent microbiologic data Vancomycin * AUC/OSMAR is the preferred PK/PD target for vancomycin * AUC guided dosing is effective and associated with decreased risk of nephrotoxicity compared to traditional trough targets * Target = q24h interval to help facilitate outpatient therapy x6 weeks Plan * Vancomycin 1750 mg IV x1 then 1250 mg IV q24h * Vanc trough 11/17 @ 0930 Pharmacy will continue to follow and will adjust dose/frequency as necessary. Thank you.
[2021-11-15] MEDS: PROPRANOLOL HCL 20 MG TAB PO SCH (20:10)
[2021-11-15] MEDS: SENNA 8.6 MG TAB PO SCH (20:10)
[2021-11-15] MEDS: amLODIPine BESYLATE 5 MG TAB PO SCH (20:11)
[2021-11-15] MEDS: TELMISARTAN 20 MG TAB PO SCH (20:12)
[2021-11-15] MEDS: ATORVASTATIN 10 MG TAB PO SCH (20:13)
[2021-11-15] MEDS: DULoxetine HCL 60 MG CAP PO SCH (20:13)
[2021-11-16] MEDS: LEVOTHYROXINE SODIUM 112 MCG TABLET PO SCH (05:33)
[2021-11-16] MEDS: ACETAMINOPHEN 500 MG TAB PO SCH ×3 (05:33→21:54)
[2021-11-16 05:49] LABS: Creatinine Clr Calc Pharmacy 52.6 ml/min; Est GFR (African American) 71.5 ml/min; Est GFR (Non-African American) 61.7 ml/min
[2021-11-16] MEDS: PANTOprazole 40 MG TAB PO SCH ×2 (08:16→20:57)
[2021-11-16] MEDS: APIXABAN 5 MG TABLET PO SCH ×2 (08:16→20:59)
[2021-11-16] MEDS: ISOSORBIDE MONO EXTENDED REL 30 MG TABCR PO SCH (08:17)
[2021-11-16] MEDS: CETIRIZINE HCL 10 MG TABLET PO SCH (08:17)
[2021-11-16] MEDS: CYANOCOBALAMIN (B-12) 500 MCG TABLET PO SCH (08:17)
[2021-11-16] MEDS: DOCUSATE SODIUM 100 MG CAP PO SCH ×2 (08:17→20:57)
[2021-11-16] MEDS: MULTIVITAMIN TAB PO SCH (08:17)
[2021-11-16] MEDS: buPROPion XL 300 MG TABCR PO SCH (08:17)
[2021-11-16] MEDS: VANCOMYCIN HCL 1,250 MG in SODIUM CHLORIDE 0.9% 250 ML IV SCH (10:07)
--- NOTE | 2021-11-16 10:54 | Orthopedic Progress Note ---
Date of Service November 16, 2021 Assessment & Plan (1) Infection of total knee replacement: Plan: Postop day 7 status post explantation right TKA hardware. 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 He did well for many years until this last year when he developed chronic pain and swelling in his right knee, and failed conservative management. Because of ongoing pain, workup included a bone scan, which demonstrates some generalized increased uptake, but no evidence of osteomyelitis. There was some increased signal activity compared to his opposite knee. The serum white blood cell count was normal. The erythrocyte sedimentation rate was high normal, the CRP was elevated over 2. The knee joint aspirate demonstrated alpha-defensin positive test, a white blood cell count o chuckie 7000, which would be consistent with septic knee. The antigens were positive for Staphylococcus; however, the culture was negative. The radiographs demonstrate no clear evidence of any loosening of a cemented posterior stabilized knee replacement. During the procedure,there was evidence of osteolysis around the superior flange of the femoral component, posterior condyles of the femoral component had significant osteolysis around both the posterior femoral condyles, there was some osteolysis around the tibia in certain areas and there was a small area of osteolysis under the patella.* PT/OT protocols. Weightbearing as tolerated right lower extremity. Ambulation with immobilizer on at this time. Immobilizer may be off with range of motion exercises and sitting in a chair. DVT prophylaxis- Eliquis 5 mg p.o. twice daily restarted today. SCDs, ALLYSSA mueller. Pain management as written. Appreciate ID recs - Vancomycin 1250mg daily, Ertapenem 1gm daily for 6 weeks. Weekly labs planned per ID request and will be sent to Dr Patel (discussed with him). Rx's on chart (given to CM to make copies) Discussed with Pharmacy concerning Vancomycin dosing. Prefer to keep patient until tomorrow to get some labs prior to dc since just starting yesterday. Appreciate Medical Service input. Follow as necessary. Admission and Anticipated Discharge Date Admission Date: November 09, 2021 Subjective POD 7 Pt sitting in chair at bedside. No complaints. Pain controlled. Discussed plans for home antibiotics/lab draws. Physical Exam Physical Exam: Immobilizer removed. MORENA dressing removed. Wound very benign. Minimal to no swelling. no erythema. Calves soft, NT. NV intact. Toes mobile. Abd placed on wound with adelfo wrap. Immobilizer placed back on LE. Results & Data ([facility]) Vital Signs (Past 12 Hours) Vital Signs Temp Pulse Resp BP BP Pulse Ox 11/16/21 07:35 36.7 C 63 16 146/87 H 94 11/15/21 23:51 36.7 C 63 17 129/78 96 (1) Infection of total knee replacement Encounter type: subsequent encounter Qualified Code(s): T84.59XD - Infection and inflammatory reaction due to other internal joint prosthesis, subsequent encounter; Z96.659 - Presence of unspecified artificial knee joint
[2021-11-16] MEDS: ERTAPENEM SODIUM 1,000 MG in SYRINGE 0 ML IV SCH (12:22)
[2021-11-16] MEDS: oxyCODONE HCL IR 5 MG TAB (IMMEDIATE RELEASE) PO PRN ×2 (15:48→19:52)
[2021-11-16] MEDS: TELMISARTAN 20 MG TAB PO SCH (20:56)
[2021-11-16] MEDS: SENNA 8.6 MG TAB PO SCH (20:57)
[2021-11-16] MEDS: amLODIPine BESYLATE 5 MG TAB PO SCH (20:58)
[2021-11-16] MEDS: DULoxetine HCL 60 MG CAP PO SCH (20:58)
[2021-11-16] MEDS: PROPRANOLOL HCL 20 MG TAB PO SCH (20:58)
[2021-11-16] MEDS: ATORVASTATIN 10 MG TAB PO SCH (21:00)
[2021-11-17] MEDS: LEVOTHYROXINE SODIUM 112 MCG TABLET PO SCH (06:04)
[2021-11-17] MEDS: ACETAMINOPHEN 500 MG TAB PO SCH ×2 (06:04→13:29)
[2021-11-17 06:41] LABS: Creatinine Clr Calc Pharmacy 51.7 ml/min; Est GFR (Non-African American) 60.4 ml/min
[2021-11-17] MEDS: DOCUSATE SODIUM 100 MG CAP PO SCH (08:20)
[2021-11-17] MEDS: MULTIVITAMIN TAB PO SCH (08:21)
[2021-11-17] MEDS: PANTOprazole 40 MG TAB PO SCH (08:21)
[2021-11-17] MEDS: APIXABAN 5 MG TABLET PO SCH (08:21)
[2021-11-17] MEDS: CYANOCOBALAMIN (B-12) 500 MCG TABLET PO SCH (08:21)
[2021-11-17] MEDS: ISOSORBIDE MONO EXTENDED REL 30 MG TABCR PO SCH (08:21)
[2021-11-17] MEDS: buPROPion XL 300 MG TABCR PO SCH (08:21)
[2021-11-17] MEDS: CETIRIZINE HCL 10 MG TABLET PO SCH (08:21)
--- NOTE | 2021-11-17 09:00 | Orthopedic Progress Note ---
Date of Service November 17, 2021 Assessment & Plan (1) Infection of total knee replacement: Plan: Postop day 8 status post explantation right TKA hardware. 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 He did well for many years until this last year when he developed chronic pain and swelling in his right knee, and failed conservative management. Because of ongoing pain, workup included a bone scan, which demonstrates some generalized increased uptake, but no evidence of osteomyelitis. There was some increased signal activity compared to his opposite knee. The serum white blood cell count was normal. The erythrocyte sedimentation rate was high normal, the CRP was elevated over 2. The knee joint aspirate demonstrated alpha-defensin positive test, a white blood cell count o chuckie 7000, which would be consistent with septic knee. The antigens were positive for Staphylococcus; however, the culture was negative. The radiographs demonstrate no clear evidence of any loosening of a cemented posterior stabilized knee replacement. During the procedure,there was evidence of osteolysis around the superior flange of the femoral component, posterior condyles of the femoral component had significant osteolysis around both the posterior femoral condyles, there was some osteolysis around the tibia in certain areas and there was a small area of osteolysis under the patella.* PT/OT protocols. Weightbearing as tolerated right lower extremity. Ambulation with immobilizer on at this time. Immobilizer may be off with range of motion exercises and sitting in a chair. DVT prophylaxis- Eliquis 5 mg p.o. twice daily restarted today. SCDs, ALLYSSA mueller. Pain management as written. Appreciate ID recs - Vancomycin 1250mg daily, Ertapenem 1gm daily for 6 weeks. Weekly labs planned per ID request and will be sent to Dr Patel (discussed with him). Rx's on chart (given to CM to make copies) Discharge planninghome today after his antibiotic doses. Appreciate Medical Service input. Follow as necessary. Admission and Anticipated Discharge Date Admission Date: November 09, 2021 Subjective POD 8 Patient lying in bed comfortably. No complaints. Pain controlled. Discussed plans for home antibiotics/lab draws. Physical Exam Constitutional: WD/WN, vitals as above no acute distress Musculoskeletal: Knee: + surgical incision (right knee: MORENA dressing in place and functioning.); no skin erythema and no ecchymosis Skin: no rashes, warm and dry Trauma: no evidence of skin trauma Neurologic: normal touch/pain/proprioception Psychiatric: A+Ox3, euthymic affect Speech: normal rate/rhythm/volume of speech Results & Data ([facility]) Vital Signs (Past 12 Hours) Vital Signs Temp Pulse Resp BP Pulse Ox 11/17/21 07:43 36.6 C 52 L 16 136/75 96 11/16/21 22:42 36.7 C 59 L 18 126/74 96 (1) Infection of total knee replacement Encounter type: subsequent encounter Qualified Code(s): T84.59XD - Infection and inflammatory reaction due to other internal joint prosthesis, subsequent encounter; Z96.659 - Presence of unspecified artificial knee joint
[2021-11-17] MEDS ORDERED: VANCOMYCIN TROUGH ONE (09:30)
[2021-11-17] MEDS: VANCOMYCIN HCL 1,250 MG in SODIUM CHLORIDE 0.9% 250 ML IV SCH (10:29)
[2021-11-17] MEDS: ERTAPENEM SODIUM 1,000 MG in SYRINGE 0 ML IV SCH (13:29)
--- NOTE | 2021-11-22 13:59 | Discharge Summary ---
Date of Service November 22, 2021 Admission HPI Per Admitting Provider 81yo male with PMHx significant for AAA, a-fib, valvular heart disease, HTN, high cholesterol, b/l TKA who presents with onset of right knee pain for at least the past 6 mos. Has been having pain and swelling. Workup for infection positive. Normal sed rate and white count, however elevated CRP. On aspiration was alpha defensin positive with white count of 8K and 80% polys. Cultures were no growth. Surgical intervention was recommended. Patient denies headaches, sweats, fevers, chills, double vision, blurred vision, cough, sore throat, dysphagia, chest pain, sob, wheezing, n/v/d/c, numbness, tingling, fatigue, ur inary symptoms, mood disorders. ROS positive for right knee pain and swelling. Admission Exam Per Admitting Provider Physical Exam Constitutional: well developed and well nourished; no acute distress Eyes: PERRL, conjunctivae normal, anicteric sclerae ENMT: external ear and nose normal, oropharynx normal Neck: trachea midline, no thyromegaly Respiratory: normal respiratory effort, lungs clear to auscultation Cardiovascular: RRR, no murmur, no edema Musculoskeletal: Right knee: Moderate effusion. Mild tenderness about the knee. No erythema. Stable to valgus and varus stress. Negative posterior drawer. Skin: no rashes, warm and dry Neurologic: patellar DTR's 2+ bilat, sensation intact Psychiatric: A+Ox3, euthymic affect Principal Diagnosis Chronic low-grade right TKA infection Discharge Data Allergies Allergy/AdvReac Type Severity Reaction Status Date / Time No Known Drug Allergies Allergy Verified 11/09/21 10:44 Consultations 11/06/21 16:53 Consult Hospitalist Routine 11/11/21 09:09 Consult Infectious Diseases Routine Procedures Performed Operation Date: 11/09/21 13:00 Actual Procedures p Removal of Right Total Knee and Placement of Antibiotic Spacer, Synovectomy, Osteolysis(Right) - Michael Guillen MD Ordered Studies 11/09/21 05:00 US - OR guided needle placemen Routine Hospital Course (1) Infection of total knee replacement: Patient was admitted on the above-noted date and had the above-noted surgery performed which she tolerated well. Postoperatively he was started on IV Rocephin. [facility] hospitalist service was consulted for medical management. On his first postoperative day he was sitting in his chair at the bedside. He was going through his physical therapy session. He had no complaints and pain was controlled. Dressings were clean dry and intact. Calves are soft nontender. Neurovascular is intact. Toes are mobile. Vital signs are stable and he is afebrile White count was 10.2 hemoglobin was 10.2 and he was continued on his PT and OT protocols and IV antibiotics. Cultures were negative to date and he was continued on IV Rocephin 2 g daily. Patient remained stable over the neck several days and infectious disease consult was placed on 11/18/21. Due to a shortage of staff on the [facility] infectious disease team, his consult was delayed for multiple days. Patient continued to remain stable. Dressings and drain had been removed and his sheree wound VAC was functioning well and remaining intact. He was eventually seen by Dr. Jeremiah Patel from [facility] ID team on 11/15/2021. Plans were for a 6-week IV antibiotic course. Plans were for use of vancomycin. Patient will require weekly CBC, CMP, vancomycin trough, CRP. Recommendations were also for holding off of antibiotics 4 to 12 weeks post discontinuation of his vancomycin, prior to placement of any new long-term TKA to help ensure eradication of infection. The rest of the patient stay was essentially eventful. Case management has been consulted and arranged for home health services and IV antibiotics services. I discussed with Dr. Patel the issue of following labs in the outpatient setting of which he stated he would be glad to do as long as they were sent to his office. Arrangements were made through case management and by 11/17/2021, the patient was ready for discharge to home. Total Time Total Time Spent Total Time Spent (In Minutes): 15 Discharge Plan Discharge Items Patient Disposition: Home - Home Health Services Reason For Visit: Infected Right TKA Discharge Diagnosis: Infected Right TKA Activity: Per Instructions section Weightbearing: Right weightbearing Weightbearing Comment: as tolerated with walker Non-emergency contact: Surgeon Call non-emergency contact if: your pain is not controlled, your temperature is above 101.5, your wound has increased redness and your wound has increased drainage Follow-up/Referrals: Lamine Sandoval [Primary Care Provider] - Michael Guillen MD [Surgeon] - (Follow up in 14 days from the day of surgery.) Jeremiah Patel MD [Physician] - (Follow up for an appointment with Dr Patel from Infectious disease in 4 weeks. ) Diet: Heart Healthy Addtl Attending Provider Instructions: ACTIVITY RECOMMENDATIONS: SELF CARE INSTRUCTIONS AFTER ANTIBIOTIC SPACE IMPLANTATION A. You may need to continue a physical therapy program after discharge from the hospital. There are several options available to you. Your doctor will assist you in selecting the best one for you. 1. An out-patient facility 2 to 3 times a week for therapy or home therapy. GENTLE RANGE OF MOTION. IMMOBILIZER FOR AMBULATION 2. Continue working on all exercises taught to you in the hospital. B. You may progress at your own pace from walking with a walker or crutches to a cane; then to no assistive devices. C. Make walking a part of your daily routine. Be up as much as comfortable with rest periods throughout the day. Rest with leg elevation is very important. Use the ice wrap frequently for the first 3-4 weeks. D. There are no restrictions on activities. You may ride in a car, shop, participate in track broom operator and all social activities. E. Wear the long elastic stockings (ALLYSSA hose) 20 hours a day for 2 weeks after surgery. They can be removed several times a day for laundering and for a bath. F. You may shower, no tub baths until cleared by your doctor. SPECIAL CARE INSTRUCTIONS: VERY IMPORTANT TO READ AND REVIEW A. There are a few signs you need to watch for after you are home. Call [facility] if you notice any of the followin. Increased severe knee pain. Some pain is expected especially when you exercise. 2. Increased swelling in your leg or knee; pain or swelling of the calf muscle in either lower leg. 3. Any fluid drainage from the incision. 4. Shortness of breath or chest pain. B. Please call [facility] at if you have any concerns or questions about your operation or recovery. The doctor or his nurse will return your call promptly. C. You must take antibiotics before dental work, bladder, bowel or other surgery. Your doctor will provide you with a permanent care to carry describing this precaution. IMPORTANT: * REMEMBER TO TAKE APIXABAN TWICE DAILY * CALL IF INCREASED PAIN, REDNESS, DRAINAGE OR FEVER GREATER THAT 101. * WEAR ALLYSSA HOSE 20 HOURS PER DAY FOR 2 WEEKS. * KEEP YOUR WOUND COVERED WITH GAUZE UNTIL SEEN BACK IN THE OFFICE. YOU MAY USE AN LISA WRAP TO KEEP DRESSING IN PLACE. . FOLLOW UP VISIT: If appointment is not already scheduled: Please call [facility] to make a follow-up appointment for 2 weeks after your surgery at . Pending Studies at Discharge: No Stand-Alone Forms: [facility] [employer], Smoking Cessation Medications and DC Order Prescriptions: New acetaminophen [Tylenol Extra Strength] 500 mg Tablet 1,000 mg PO Q8 14 Days Qty: 84 RF: 0 ertapenem 1 gram recon soln 1 g IV DAILY 42 Days Qty: 10 RF: 0 vancomycin 1.25 gram recon soln 1.25 g IV Q12H 42 Days Qty: 10 RF: 0 oxycodone 5 mg Tablet 5 mg PO Q4H MDD 6 PRN (Reason: pain) Qty: 30 RF: 0 Continued Eliquis 5 mg tablet 5 mg PO BID Qty: 60 RF: 11 cyanocobalamin (vitamin B-12) 1,000 mcg tablet 1,000 mcg PO QAM RF: 0 esomeprazole magnesium [Nexium] 40 mg capsule,delayed release(DR/EC) 40 mg PO BID RF: 0 zinc acetate 1 cap PO QAM RF: 0 telmisartan [Micardis] 80 mg tablet 80 mg PO QPM RF: 0 atorvastatin [Lipitor] 10 mg tablet 10 mg PO QPM RF: 0 amlodipine [Norvasc] 10 mg tablet 10 mg PO QPM RF: 0 duloxetine [Cymbalta] 60 mg capsule,delayed release(DR/EC) 60 mg PO QPM RF: 0 levothyroxine [Synthroid] 112 mcg tablet 112 mcg PO UD RF: 0 multivitamin [Multiple Vitamins] Tablet 1 tab PO QAM RF: 0 bupropion HCl [Wellbutrin XL] 300 mg tablet extended release 24 hr 300 mg PO QAM RF: 0 propranolol 40 mg tablet 40 mg PO QPM RF: 0 levothyroxine 100 mcg capsule 100 mcg PO UD RF: 0 mometasone 0.1 % solution 1 applic topical DAILY PRN (Reason: rash) Qty: 30 RF: 1 cetirizine [Zyrtec] 10 mg Tablet 10 mg PO QAM RF: 0 isosorbide mononitrate 30 mg tablet extended release 24 hr 30 mg PO QAM RF: 0 Discharge Orders: Discharge Order (Routine); Ordered 11/17/21 Ordered By: Dante Castillo/Other Patient Handouts: PICC Admission Data Admit Date/Time: 11/09/21 17:51 Attending Provider: Michael Guillen Admit Provider: Michael Guillen Primary Care Provider: Lamine Sandoval Other Providers: Hector Louie ; Miguelito Kolb ; Kapil Robles ; Jeremiah Patel I. ; Chrsi Agarwal II ; Carolee Slaughter ; Gaurav Haq ; Albin Acevedo ; [facility] ; [facility] Other Interventions: Discharge Summary Assessment (RN) Last Done: 11/17/21 12:45
== END 2021-11-17 14:14 | disposition home health service (06) | DRG 465 ==
LOC: ASU 10:06 → 3W 17:51

== ENCOUNTER 2022-03-07 11:09 | Observation (INO) ==
--- NOTE | 2022-02-14 13:59 | PAT Medication Instructions ---
Medication Instructions Date of Service February 14, 2022 Home Medications Medication Instructions Recorded apixaban 5 mg tablet (Eliquis) 5 mg PO BID #60 tabs 08/13/21 mometasone 0.1 % topical solution 1 applic topical DAILY PRN rash 09/06/21 #30 mL oxycodone 5 mg tablet 5 mg PO Q4H PRN pain #30 tabs 11/16/21 cyanocobalamin (vitamin B-12) 1,000 mcg tablet 1,000 mcg PO QAM atorvastatin 10 mg tablet (Lipitor) 10 mg PO QPM duloxetine 60 mg capsule,delayed release (Cymbalta) 60 mg PO QPM levothyroxine 112 mcg tablet (Synthroid) 112 mcg PO UD multivitamin (Multiple Vitamins) 1 tab PO QAM telmisartan 80 mg tablet (Micardis) 80 mg PO QPM zinc acetate 1 cap PO QAM esomeprazole magnesium 40 mg capsule,delayed release (Nexium) 40 mg PO BID levothyroxine 100 mcg capsule 100 mcg PO UD propranolol 40 mg tablet 40 mg PO QPM bupropion HCl 300 mg 24 hr tablet, extended release (Wellbutrin XL) 500 mg PO QAM apixaban 5 mg tablet (Eliquis) 5 mg PO BID mometasone 0.1 % topical solution 1 applic topical DAILY PRN cetirizine 10 mg tablet (Zyrtec) 10 mg PO QAM isosorbide mononitrate 30 mg tablet,extended release 24 hr 30 mg PO QAM oxycodone 5 mg tablet 5 mg PO Q4H PRN amlodipine 5 mg tablet (Norvasc) 5 mg PO QAM Continue as directed levothyroxine 112 mcg tablet (Synthroid) 112 mcg PO UD levothyroxine 100 mcg capsule 100 mcg PO UD ASK your prescriber and surgeon apixaban 5 mg tablet (Eliquis) 5 mg PO BID STOP taking 24 hours before surgery mometasone 0.1 % topical solution 1 applic topical DAILY PRN DO NOT take the morning of surgery cyanocobalamin (vitamin B-12) 1,000 mcg tablet 1,000 mcg PO QAM multivitamin (Multiple Vitamins) 1 tab PO QAM zinc acetate 1 cap PO QAM cetirizine 10 mg tablet (Zyrtec) 10 mg PO QAM Take morning of surgery With a small sip of water, OTHERWISE NOTHING TO EAT OR DRINK AFTER MIDNIGHT: esomeprazole magnesium 40 mg capsule,delayed release (Nexium) 40 mg PO BID bupropion HCl 300 mg 24 hr tablet, extended release (Wellbutrin XL) 500 mg PO QAM isosorbide mononitrate 30 mg tablet,extended release 24 hr 30 mg PO QAM oxycodone 5 mg tablet 5 mg PO Q4H PRN(if needed) amlodipine 5 mg tablet (Norvasc) 5 mg PO QAM Take evening before surgery atorvastatin 10 mg tablet (Lipitor) 10 mg PO QPM duloxetine 60 mg capsule,delayed release (Cymbalta) 60 mg PO QPM telmisartan 80 mg tablet (Micardis) 80 mg PO QPM esomeprazole magnesium 40 mg capsule,delayed release (Nexium) 40 mg PO BID propranolol 40 mg tablet 40 mg PO QPM oxycodone 5 mg tablet 5 mg PO Q4H PRN(if needed) Other Notes If you have any questions please call us at [phone] or [phone] or [phone] or [phone]
--- NOTE | 2022-02-20 12:03 | Anesthesiology Consultation ---
Date of Service February 20, 2022 Assessment & Plan (1) Encounter for pre-operative examination: - COVID screening: Per assessment on 02/20: No known COVID-19 positive contacts or current COVID-19 related symptoms. Travel screen negative. Patient vaccinated. Surgeon arranging preop COVID testing. Awaiting results. - Hx glidescope intubation: Removal of right total knee, placement antibiotic spacer (11/09/21): Grade view 1, Glidescope #4, ETT 7.5 at [facility]. No major issues noted per post-op anesthesia progress note. Per anesthesia consult, surgery done under [place] d/t hx epidural complications and h/o AAA without recent imaging. - Cardiology addendum (02/14/22): "Patient OK to proceed with planned total knee replacement revision on 03/07/2022. Does not need additional cardiac testing. Hold Eliquis for 72 hours before procedure. Resume when safe from a surgical standpoint." Chart Review Chart Review: Acceptable Risk for Surgery and Patient seen in Pre Admission Testing Teaching & Discussion Pre-Anesthesia Teaching/Discussion Notes: Instructed NPO after midnight before surgery,except medications with 15 cc of water. Medication instructions provided according to the PAT guidelines. History Surgery Operation Date: 03/07/22 10:45 Proposed Procedures p Right Knee Revision Cement Spacer to Total Knee Arthroplasty - Michael Guillen MD Height/Weight Height: 5 ft 9 in Weight: 86.1 kg Allergies Allergy/AdvReac Type Severity Reaction Status Date / Time No Known Drug Allergies Allergy Verified 02/14/22 10:22 Medications Home Medications Medication Instructions Recorded Confirmed Last Taken cyanocobalamin (vitamin B-12) 1,000 mcg PO QAM 02/07/20 02/14/22 11/06/21 08:00 1,000 mcg tablet atorvastatin 10 mg tablet (Lipitor) 10 mg PO QPM 02/10/20 02/14/22 11/08/21 23:00 duloxetine 60 mg capsule,delayed 60 mg PO QPM 02/10/20 02/14/22 11/08/21 23:00 release (Cymbalta) levothyroxine 112 mcg tablet 112 mcg PO UD 02/10/20 02/14/22 11/09/21 08:00 (Synthroid) multivitamin (Multiple Vitamins) 1 tab PO QAM 07/04/2302/14/22 11/08/21 08:00 telmisartan 80 mg tablet (Micardis) 80 mg PO QPM 02/10/20 02/14/22 11/08/21 23:00 zinc acetate 1 cap PO QAM 11/23/20 02/14/22 11/06/21 08:00 esomeprazole magnesium 40 mg 40 mg PO BID 01/09/21 02/14/22 11/09/21 08:00 capsule,delayed release (Nexium) levothyroxine 100 mcg capsule 100 mcg PO UD 03/15/21 02/14/22 11/08/21 08:00 propranolol 40 mg tablet 40 mg PO QPM 03/15/21 02/14/22 11/08/21 23:00 bupropion HCl 300 mg 24 hr tablet, 500 mg PO QAM 07/16/21 02/14/22 11/09/21 08:00 extended release (Wellbutrin XL) apixaban 5 mg tablet (Eliquis) 5 mg PO BID #60 tabs 08/13/21 02/14/22 11/07/21 23:00 mometasone 0.1 % topical solution 1 applic topical DAILY PRN rash 09/06/21 02/14/22 Unknown #30 mL cetirizine 10 mg tablet (Zyrtec) 10 mg PO QAM 11/01/21 02/14/22 11/08/21 08:00 isosorbide mononitrate 30 mg 30 mg PO QAM 11/01/21 02/14/22 11/08/21 08:00 tablet,extended release 24 hr oxycodone 5 mg tablet 5 mg PO Q4H PRN pain #30 tabs 11/16/21 02/14/22 Unknown amlodipine 5 mg tablet (Norvasc) 5 mg PO QAM 02/14/22 02/14/22 Unknown Past Medical History Medical History AAA (abdominal aortic aneurysm) "Mild aneurysmal dilatation of the ascending thoracic aorta measuring 4.3 cm in diameter. This is not significantly changed." per 10/2019 CT. Under surveillance by [facility] cardio- recommends f/u imaging 2022 Anemia Chronic, hgb 10-11 range since 08/2021 Atrial fibrillation Reason for Eliquis Follows with [facility] cardio Barretts esophagus Basal cell carcinoma Chronic back pain DDD (degenerative disc disease) Depression History of colon cancer Dx 2016 - treated surgically HLD (hyperlipidemia) HTN (hypertension) Controlled, stable per pt Hypothyroidism Osteoarthritis Retinal vascular occlusion "Blood clot/stroke in eye" per pt (~4 years) Follows with ophthalmology Exercise / Class Metabolic Activity III < 4 Walking/Shop/Light housework (one FS (no CP, mild SOB- chronic)) Past Family History Family History Father Hypertension Heart disease Sister Breast cancer Liver cancer Mother Breast cancer Other No family history of adverse response to anesthesia No family history of bleeding disorder Past Surgical History Surgical History History of anesthesia complications Trapped epidural catheter requiring laminectomy and removal 08/25/2015 History of appendectomy History of bowel resection 2016 complicated by presence of small tumor requiring patient undergoing surgery soon in post-op period due to epidural catheter coiling around tumor History of cervical spinal surgery x 2 surgeries - limited ROM up/down, side to side @ [place] History of colonoscopy History of esophagogastroduodenoscopy (EGD) History of hernia repair History of left knee replacement History of lumbar surgery 2009, 2011 ([place]) History of Mohs micrographic surgery for skin cancer History of right knee joint replacement 2005 History of shoulder surgery Right x2, Left x2 S/P right knee surgery Removal of right total knee, placement antibiotic spacer (11/09/21): Grade view 1, Glidescope #4, ETT 7.5 at [facility]. No major issues noted per post-op anesthesia progress note. Per anesthesia consult, surgery done under [place] d/t hx epidural complications and h/o AAA without recent imaging. Past Anesthesia History No Family Hx of Anesthesia Complications and Other (Trapped epidural catheter requiring laminectomy and removal 08/25/2015) History of PONV No Hx of PONV and No Hx of Motion Sickness Social History Smoking Status: Former smoker Do You Dip or Chew Tobacco: No Smoking End Date: Quit 1977 Hx Alcohol Use: Yes Alcohol type: hard liquor alcohol intake frequency: a few times a week Hx Substance Use: No substance use type: does not use Review of Systems Chronic, dry morning cough x years felt r/t hx smoking- no recent changes. Patient denies chest pain, shortness of breath, fever, chills, wheezing, palpitations. Physical Exam Vital Signs VITALS BP 116/72 P 58 TEMP SP02 96%RA RESP 18 PHYSICAL Decreased cervical extension range of motion. Full TMJ range of motion. TMD 3 finger breaths Mallampati Score .3 Dentition: several missing teeth, upper/lower partials dentures Lungs: clear throughout to auscultation Cardiac: regular rate and rhythm, no murmurs noted Spine: normal Carotid arteries: negative bruit Extremities: no edema Lab Results Anesthesia Preop Results Results Anesthesia Widget: WBC 6.13 K/ul (4.8-10.8) 02/20/22 Hgb 11.8 g/dl (14.0-18.0) L 02/20/22 Hct 35.5 % (40.1-51.0) L 02/20/22 Plt 193 K/uL (130-400) 02/20/22 Na 138 mmol/L (136-145) 02/20/22 K 4.6 mmol/L (3.5-5.1) 02/20/22 Cl 104 mmol/L (98-107) 02/20/22 CO2 27 mmol/L (21-32) 02/20/22 BUN 23 mg/dl (6-23) 02/20/22 Creat 1.24 mg/dl (0.6-1.4) 02/20/22 Glucose Level 126 mg/dl (70-99(Fasting)) H 02/20/22 PT 10.9 Seconds (9.0-12.0) 02/20/22 PTT 26.8 Seconds (21.0-31.0) 02/20/22 INR 1.0 (0.9-1.1) 02/20/22 HA1c 6.0 % (4.5-5.6) H 02/20/22 Urine Color Yellow 02/20/22 Urine Appearance Clear (Clear) 02/20/22 Urine pH 5.5 (4.5-7.5) 02/20/22 Urine Specific [place]y 1.019 (1.000-1.030) 02/20/22 Urine Protein Trace (Negative) H 02/20/22 Urine Glucose (UA) Negative (Negative) 02/20/22 Urine Ketones Negative (Negative) 02/20/22 Urine Blood Negative (Negative) 02/20/22 Urine Nitrite Negative (Negative) 02/20/22 Urine Bilirubin Negative (Negative) 02/20/22 Urine Urobilinogen Negative (Negative) 02/20/22 Urine Leukocyte Esterase Negative (Negative) 02/20/22 Urine WBC (Auto) 1-5 /hpf (0-5) 02/20/22 Urine RBC (Auto) 0-4 /hpf (0-4) 02/20/22 Urine Hyaline Casts (Auto) 1-5 /lpf (0-5) 02/20/22 Urine Epithelial Cells (Auto) 5-10 /lpf (0-5) H 02/20/22 Urine Bacteria (Auto) Negative (Negative) 02/20/22 Blood Type O Positive 02/20/22 Antibody Screen NEGATIVE 02/20/22 Testing Electrocardiogram Date: 02/20/22 SB at 58bpm. iRBBB. Chest X-Ray Date: 02/20/22 FINDINGS: Frontal and lateral radiographs of the chest demonstrate the cardiomediastinal silhouette to be within normal limits. The lungs are clear of alveolar opacities. There is no evidence for effusion bilaterally. There is no evidence for vascular congestion. There is no acute osseous pathology. IMPRESSION: No acute cardiopulmonary disease. Echocardiogram Date: 08/28/15 EF 65-70% Mild cLVH Left ventricle normal in size and systolic function No regional wall motion abnormalities Grade I diastolic dysfunction Mild to moderate right ventricle dilation Mild left atrial dilation Trace mitral regurgitation Trace pulmonic regurgitation Trace tricuspid regurgitation Stress Test Date: 12/26/20 No scintigraphic evidence of a prior myocardial infarction or stress-induced myocardial ischemia. No exercise-induced chest pain. No EKG changes. Normal left ventricular systolic function without wall motion abnormality. Left ventricular ejection fraction is 69%. Cardio 03/15/2021 note: "On my review subtle base to mid inferoseptal perfusion defect. EF 69% without wall motion abnormalities..." Other Testing Heart event monitor 02/08/2021 Paroxysmal AF-peak HR 117 Frequent PVCs
--- NOTE | 2022-03-06 18:12 | History & Physical Report ---
Date of Service March 06, 2022 Assessment & Plan (1) Infection of total knee replacement: Plan: Treatment options discussed with the patient. His repeat cultures have been negative. He understands IV antibiotics. He would. Like to proceed with revision surgery. Risks, benefits and alternatives to surgery including but not limited to infection, DVT, pain, stiffness, need for revision surgery, damage to blood vessels, damage to nerves, PE, , were discussed with the patient and they wish to proceed. Plan for explant and cement spacer and revision right total knee arthroplasty scheduled for March 07, 2022 at [facility] with Dr. Guillen. He will resume his home Eliquis postop. We will plan on home health PT. All questions answered. Follow-up postop. Encounter type: subsequent encounter Qualified Code(s): T84.59XD - Infection and inflammatory reaction due to other internal joint prosthesis, subsequent encounter; Z96.659 - Presence of unspecified artificial knee joint History of Present Illness Chief Complaint: Right knee pain Primary Care Provider: Lamine Sandoval 81yo male with PMHx significant for AAA, a-fib, valvular heart disease, HTN, high cholesterol, right infected total knee who presents for revision surgery following placement of antibiotic spacer. Patient has finished IV antibiotics. Repeat cultures have remained negative. Patient denies headaches, sweats, fevers, chills, double vision, blurred vision, cough, sore throat, dysphagia, chest pain, sob, wheezing, n/v/d/c, numbness, tingling, fatigue, urinary symptoms, mood disorders. ROS positive for right knee pain and stiffness. Allergies Allergy/AdvReac Type Severity Reaction Status Date / Time No Known Drug Allergies Allergy Verified 02/14/22 10:22 Home Medications Medication Instructions Recorded Confirmed Type cyanocobalamin (vitamin B-12) 1,000 mcg PO QAM 02/07/20 02/14/22 History 1,000 mcg tablet atorvastatin 10 mg tablet (Lipitor) 10 mg PO QPM 02/10/20 02/14/22 History duloxetine 60 mg capsule,delayed 60 mg PO QPM 02/10/20 02/14/22 History release (Cymbalta) levothyroxine 112 mcg tablet 112 mcg PO UD 02/10/20 02/14/22 History (Synthroid) multivitamin (Multiple Vitamins) 1 tab PO QAM 02/10/20 02/14/22 History telmisartan 80 mg tablet (Micardis) 80 mg PO QPM 02/10/20 02/14/22 History zinc acetate 1 cap PO QAM 11/23/20 02/14/22 History esomeprazole magnesium 40 mg 40 mg PO BID 01/09/21 02/14/22 History capsule,delayed release (Nexium) levothyroxine 100 mcg capsule 100 mcg PO UD 03/15/21 02/14/22 History propranolol 40 mg tablet 40 mg PO QPM 03/15/21 02/14/22 History bupropion HCl 300 mg 24 hr tablet, 500 mg PO QAM 07/16/21 02/14/22 History extended release (Wellbutrin XL) apixaban 5 mg tablet (Eliquis) 5 mg PO BID #60 tabs 08/13/21 02/14/22 Rx mometasone 0.1 % topical solution 1 applic topical DAILY PRN rash 09/06/21 02/14/22 Rx #30 mL cetirizine 10 mg tablet (Zyrtec) 10 mg PO QAM 11/01/21 02/14/22 History isosorbide mononitrate 30 mg 30 mg PO QAM 11/01/21 02/14/22 History tablet,extended release 24 hr oxycodone 5 mg tablet 5 mg PO Q4H PRN pain #30 tabs 11/16/21 02/14/22 Rx amlodipine 5 mg tablet (Norvasc) 5 mg PO QAM 02/14/22 02/14/22 History Past Med/Surg History Medical History AAA (abdominal aortic aneurysm) "Mild aneurysmal dilatation of the ascending thoracic aorta measuring 4.3 cm in diameter. This is not significantly changed." per 10/2019 CT. Under surveillance by [facility] cardio- recommends f/u imaging 2022 Anemia Chronic, hgb 10-11 range since 08/2021 Atrial fibrillation Reason for Eliquis Follows [facility] cardio Barretts esophagus Basal cell carcinoma Chronic back pain DDD (degenerative disc disease) Depression History of colon cancer Dx 2016 - treated surgically HLD (hyperlipidemia) HTN (hypertension) Controlled, stable per pt Hypothyroidism Osteoarthritis Retinal vascular occlusion "Blood clot/stroke in eye" per pt (~4 years) Follows with ophthalmology Surgical History History of anesthesia complications Trapped epidural catheter requiring laminectomy and removal 08/25/2015 History of appendectomy History of bowel resection 2015 complicated by presence of small tumor requiring patient undergoing surgery soon in post-op period due to epidural catheter coiling around tumor History of cervical spinal surgery x 2 surgeries - limited ROM up/down, side to side @ [place] History of colonoscopy History of esophagogastroduodenoscopy (EGD) History of hernia repair History of left knee replacement History of lumbar surgery 2009, 2011 ([place]) History of Mohs micrographic surgery for skin cancer History of right knee joint replacement 2005 History of shoulder surgery Right x2, Left x2 S/P right knee surgery Removal of right total knee, placement antibiotic spacer (11/09/21): Grade view 1, Glidescope #4, ETT 7.5 at [facility]. No major issues noted per post-op anesthesia progress note. Per anesthesia consult, surgery done under [place] d/t hx epidural complications and h/o AAA without recent imaging. Family History Father Hypertension Heart disease Sister Breast cancer Liver cancer Mother Breast cancer Other No family history of adverse response to anesthesia No family history of bleeding disorder Social History Smoking Status: Former smoker Tobacco Type: Cigarettes packs per day: 1; Years Smoked: 25; Second Hand Exposure: No; Hx Alcohol Use: Yes Alcohol type: hard liquor Alcohol Intake Frequency Comment: 2 drinks/week Hx Substance Use: No Preferred Language: [place] Communication Ability: Effective Gas Scrubber Operator Required: No Beliefs That Will Affect Care: None marital status: Current Living Situation: Spouse current occupational status: retired Feels Safe at Home: Yes Assistive Devices: Denture - Upper, Denture - Lower and Glasses Review of Systems All systems reviewed & are unremarkable except as noted in HPI & below Physical Exam Constitutional: well developed and well nourished; no acute distress Eyes: PERRL, conjunctivae normal, anicteric sclerae ENMT: external ear and nose normal, oropharynx normal Neck: trachea midline, no thyromegaly Respiratory: normal respiratory effort, lungs clear to auscultation Cardiovascular: RRR, no murmur, no edema Musculoskeletal: Right knee: Incision well-healed with no erythema. Range of motion 0 to 90 degrees. Moderate crepitation. No pain with gentle range of motion. Stable to valgus and varus stress. Skin: no rashes, warm and dry Neurologic: patellar DTR's 2+ bilat, sensation intact Psychiatric: A+Ox3, euthymic affect Results & Data ([facility]) Laboratory Results White count and CRP normal. Knee aspirate was negative for infection. Diagnostic Findings Right knee: Cement spacer in a stable alignment. No fractures.
[~2022-03-07 11:09] MED LIST changes: +BUPIVACAINE 0.25% 30 ML VIAL ONE; +BUPIVACAINE 0.5 % 5 MG/1 ML PF 10ML VIAL ONE; -LACTATED RINGER'S 1,000 ML IV SCH; +LR 500ML BOLUS, THEN 15ML/HR IV SCH
[2022-03-07] MEDS ORDERED: fentaNYL citrate 100 MCG/2 ML VIAL IV PRN (13:05)
[2022-03-07] MEDS ORDERED: ONDANSETRON INJ 2 MG/ML 2 ML VIAL IV PRN ×2 (13:05→20:58)
[2022-03-07] MEDS ORDERED: ATROPINE SULFATE 0.1 MG/ML 10ML SYR IV PRN (13:05)
[2022-03-07] MEDS ORDERED: ePHEDrine sulfate 50 MG/ML AMP IV PRN (13:05)
[2022-03-07] MEDS ORDERED: HYDROmorphone INJ 1 MG/ML SYRINGE IV PRN (13:05)
[2022-03-07] MEDS ORDERED: ROCURONIUM BROMIDE 10 MG/ML 5 ML VIAL IV ONE (13:17)
[2022-03-07] MEDS ORDERED: PROPOFOL IV EMULSION 10 MG/ML 20 ML VIAL IV ONE (13:17)
[2022-03-07] MEDS ORDERED: fentaNYL citrate 100 MCG/2 ML VIAL ONE ×2 (13:18→18:56)
--- NOTE | 2022-03-07 14:06 | History & Physical Bridge Note ---
Date of Service March 07, 2022 History & Physical Bridge Note I have examined the patient, reviewed the History & Physical and in the interval since the performance of the History & Physical I have noted the following changes of clinical significance: no changes noted
[2022-03-07] MEDS ORDERED: ceFAZolin 330 MG/ML 1 GM VIAL ONE ×2 (14:08→18:33)
[2022-03-07] MEDS ORDERED: GLYCOPYRROLATE 0.2 MG/ML VIAL ONE (15:18)
[2022-03-07] MEDS ORDERED: NEOSTIGMINE METHYLSULFATE 1 MG/ML 10ML VIAL ONE (15:18)
[2022-03-07] MEDS ORDERED: ONDANSETRON INJ 2 MG/ML 2 ML VIAL ONE (15:18)
[2022-03-07] MEDS ORDERED: DEXAMETHASONE SOD INJ 4 MG/ML VIAL ONE (15:18)
[2022-03-07] MEDS ORDERED: ePHEDrine sulfate 50 MG/ML AMP ONE (15:19)
[2022-03-07] MEDS ORDERED: PHENYLEPHRINE 100MCG/ML 5ML SYR ONE (18:23)
--- NOTE | 2022-03-07 20:07 | Post Operative Brief Note ---
Immediate Post Op Note v1 Date of Surgery March 07, 2022 Pre & Post Diagnosis Operation Date: 03/07/22 13:15 Pre-Op Diagnosis: Resolved infection of Right Total Knee Replacement status post explantation total knee replacement and placement of articulated cement spacer with excision patella component. Post-Op Diagnosis: Resolved infection of right total knee replacement status post explantation total knee replacement and placement of articulated cement spacer with excision of patella component with scar tissue and synovitis status post prior surgery. I identified the patient and participated in the time-out.: Yes Procedure Operation Date: 03/07/22 13:15 Actual Procedures p Revision Right Total Knee Replacement of Femur, Tibia, and Patella components, Explantation of Antibiotic Spacer and electrocautery synovectomy(Right) - Michael Guillen MD Surgeon Michael Guillen MD Wood Experimental Mechanic Edvin LEAHY Estimated Blood Loss 100 Findings Consistent with Post-Op Diagnosis Specimens Culture interface cement spacer in femur and soft tissue for frozen section Drains Garcia Catheter and Hemovac Drain (10Fr dual hemovac) Anesthesia Type General Regional Complications none Disposition Disposition: Recovery Room Overlapping Procedure I was immediately available: during the entire case.
--- NOTE | 2022-03-07 20:38 | Anesthesiology Progress Note ---
Date of Service March 07, 2022 Anesthesia Post Procedure Vital Signs Vital Signs: Temp Pulse Resp BP BP Pulse Ox O2 Del Method 03/07/22 20:25 97.5 F L 65 14 144/92 H 94 Room Air 03/07/22 20:15 67 14 139/93 100 Oxymask 03/07/22 20:05 63 14 134/83 99 Oxymask 03/07/22 19:58 97.7 F 66 14 119/83 99 Oxymask 03/07/22 11:30 97.9 F 58 L 16 160/95 H 98 Room Air O2 Flow Rate 03/07/22 20:25 03/07/22 20:15 4 03/07/22 20:05 6 03/07/22 19:58 6 03/07/22 11:30 Transfer of Care Handoff Completed per policy Notes Mental Status: alert / awake / arousable and participated in evaluation Patient Amnestic to Procedure: Yes Nausea / Vomiting: adequately controlled Pain: adequately controlled Airway Patency, RR, SpO2: stable & adequate BP & HR: stable & adequate Hydration State: stable & adequate Anesthetic Complications: no major complications apparent and Pt Satisfied with anesthetic care
--- NOTE | 2022-03-07 20:41 | XRay Report ---
RIGHT KNEE 2 VIEWS History: Right total knee arthroplasty/revision. Degenerative arthritis. Postop. FINDINGS: The patient is status post a right total knee arthroplasty. The hardware is intact. No frac ture or dislocation. Skin gena and surgical drains are in place. IMPRESSION: Right total knee arthroplasty. No evidence for hardware complication. ACT 112: Negative or not required by law. Electronically signed by: Delonte Aguila M.D. 03/07/2022 8:40 PM
[2022-03-07] MEDS ORDERED: NALOXONE HCL 0.4 MG/1 ML VIAL/CARP IV PRN (20:58)
[2022-03-07] MEDS ORDERED: MOMETASONE 0.1% TOP PRN (20:58)
[2022-03-07] MEDS ORDERED: METOCLOPRAMIDE HCL INJ 5 MG/ML 2 ML VIAL IV PRN (20:58)
[2022-03-07] MEDS ORDERED: SODIUM CHLORIDE 0.9% 1000ML 1,000 ML IV SCH (20:58)
[2022-03-07] MEDS ORDERED: HYDROmorphone INJ 0.5 MG/0.5 ML SYR IV PRN (20:58)
[2022-03-07] MEDS ORDERED: bisacodyL 10 MG SUPP PR PRN (20:58)
[2022-03-07] MEDS ORDERED: MAGNESIUM HYDROXIDE SUSP 30 ML UDC PO PRN (20:58)
[2022-03-07] MEDS: oxyCODONE HCL IR 5 MG TAB (IMMEDIATE RELEASE) PO PRN (21:27)
[2022-03-07] MEDS: DOCUSATE SODIUM 100 MG CAP PO SCH (22:00)
[2022-03-07] MEDS: ATORVASTATIN 10 MG TAB PO SCH (22:00)
[2022-03-07] MEDS: DULoxetine HCL 60 MG CAP PO SCH (22:00)
[2022-03-07] MEDS: PANTOprazole 40 MG TAB PO SCH (22:00)
[2022-03-07] MEDS: ACETAMINOPHEN 500 MG TAB PO SCH (22:00)
[2022-03-07] MEDS: PROPRANOLOL HCL 20 MG TAB PO SCH (22:00)
[2022-03-07] MEDS: SENNA 8.6 MG TAB PO SCH (22:00)
[2022-03-07] MEDS: TELMISARTAN 40 MG TAB PO SCH (22:00)
[2022-03-08] MEDS: ACETAMINOPHEN 500 MG TAB PO SCH ×3 (06:06→21:36)
[2022-03-08] MEDS ORDERED: LEVOTHYROXINE SODIUM 112 MCG TABLET PO SCH (06:30)
--- NOTE | 2022-03-08 06:46 | Operative Report (OR) ---
DATE OF SURGERY: 03/07/2022. INDICATIONS: The patient is an 81-year-old male who years ago had bilateral apparently minimally inv asive knee replacements. Recently, his knee had chronic swelling and pain and workup demonstrated sy novial testing suggested an infection in his knee according to the laboratory results and Synovasure positive testing so due to continued pain and swelling in the knee and recurrent synovitis, he underw ent explantation of his knee replacement of the right knee and placement of an articulated antibiotic spacer. He had multiple cultures, but never cultured out an organism. He was on 6 weeks of IV anti biotics per Infectious Disease and he has been off antibiotics for over a month and his CBC, sed rate and C-reactive protein are all within normal limits. He has good range of motion. He has no pain. He is actually functioning well, doing activities of normal daily living without a brace. He now pr esents after being cleared by Infectious Disease to have his revision knee replacement. 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 PROCEDURE: Revision right total knee replacement including femur, tibia, and patellar components wit h explantation of articulated antibiotic spacer and electrocautery synovectomy. SURGEON: Michael Guillen MD INSPECTOR AND SORTER: ARMOND Dalton. ESTIMATED BLOOD LOSS: 100 mL. FINDINGS: Consistent with postoperative diagnosis. SPECIMENS: Culture of the interface between cement spacer and the femur and soft tissue for frozen s ection. DRAINS: Two Hemovacs and a Garcia catheter. ANESTHESIA: General and adductor nerve block. COMPLICATIONS: None. DISPOSITION: Recovery room. OVERLAPPING PROCEDURE: None. DESCRIPTION OF PROCEDURE: The patient had general anesthetic, placed supine on the operating table. Pneumatic tourniquet was placed on his right upper thigh. Knee exam demonstrated he did have an eff usion, had no erythema, no drainage, benign, well-healed incision and range of motion of 10 through 1 25 degrees with crepitation consistent with a cement spacer. He had a little bit of ligamentous laxi ty to varus and valgus stress as expected with cement spacer. Garcia catheter was placed. Then, his right lower extremity was prepped and draped with ChloraPrep in the usual sterile fashion. The patie nt did have appropriate preoperative IV antibiotics and TXA. After the leg was sterilely prepped and draped in sterile fashion, the leg was elevated, exsanguinated with an Esmarch bandage and the pneum atic tourniquet was raised to 300 mmHg. The previous incision, which was an S-shaped type anterior incision was utilized for the surgery. Sk in was incised sharply. Careful dissection of the subcutaneous tissues off the extensor mechanism wa s performed. The extensor mechanism was completely intact. Incision was made through the medial ret inaculum extended up in the mid third of the quadriceps tendon and extended down to the medial tibial tubercle down to the level of the pes anserine tendons, which were left intact. The scar tissue was very thick and there was chronic synovitis of the knee, but no pus, no cloudy fluid just chronic caprice earing benign synovium tissue. The cement spacer was not grossly loose. There was some minor patell ar wear due to the excision of the patellar component and liner erosion over several months postop. First, attention was taken to irrigate the knee with saline solution and then an electrocautery synov ectomy was performed, both gutters, suprapatellar pouch. There was quite a bit of thickened synovium adjacent to the patella laterally, which was removed as well. The cement spacers were then removed, first by using a curved osteotome to break up the cement between the femur and the cement femoral co mponent. Then, I used a mallet in an attempt to loosen the cement spacer and ultimately we were able to break it off the femur. I took some samples from the interface for culture and frozen section an d then moved on to removing the tibia. There was some scar tissue that had to be removed around the tibial component and some heterotopic bone around the edges that was removed with a rongeur. I used an osteotome to break the tibia loose from the bone, tamped it up with a bone tamp and then removed t he tibial component. At this time, curettage of the surfaces of the tibia and intramedullary canal a david were performed with various curettes and rongeurs. Similar superficial debridement was performed of the femur. Attention was then taken to the tibial preparation and femoral preparation. I used the [employer] revision total knee replacement system. Attention was first taking to ream the canals. I u sed a straight curette to find each canal of the femur and the tibia, followed by canal opening drill followed by sequential reamers with the 10 being a tight fit on the tibia, which matched preoperativ e templating and a 14 on the femur, which also matched our preoperative templating. The intramedulla ry drill was left in the tibia and then cutting guide was advanced over that and set to do a skim cut on the tibia, removing some of the raised heterotopic bone areas essentially removing very minimal t ibial bone. Then, the tibia was sized for an E tibia and the offset device to have the appropriate f it over the tibia was placed at the 9 o'clock position with a 3-degree offset. We used the tilt ream er and then the broach for the fins were used. The patient had very sclerotic bone on the tibia and extremely hard bone, so I had to carefully use both a reciprocating and an oscillating saw to cut ceasar e slots in the tibia for the fins in order not to fracture the tibia. This took some time until we g ot the component seated appropriately. At this point in time, it was 2 hours and the tourniquet was let down and we packed the knee and allowed 20 minutes for revascularization. Some superficial bleed ers were cauterized, but no major bleeders were identified during inspection during this period of ti me. After that period of time, the leg was elevated again and exsanguinated with Esmarch bandage, pne umatic tourniquet was raised again to 300 mmHg. Attention was taken to the femur now and the distal femoral cutting guide was positioned onto the int ramedullary drill and rotated to match the epicondylar axis and the tibia, then the appropriate offse t was placed, this was at the 9:15 position, so the anterior cut was in line with the anterior tibia without removing any significant bone there and there was good coverage over the bony surfaces. Afte r this was pinned in position with the screws, the anterior, posterior, and chamfer cuts were made. These were made after initial cut was made with a +0 cut made just to freshen up the edge of the medi al femoral condyle and there was some more bone loss on the lateral femoral condyle distally, so I cu t that at a 5 mm offset augmentation on the lateral distal femoral side. Once again, the appropriate drills to place a stem in position were used including the tilt reamer, which was used as well at th e offset direction. The trial component was then assembled, which was the 7 standard femoral trial f or the right femur with a 14 x 135 degrees stem with a 3-degree offset with a 5-mm distal lateral aug ment and this trial was impacted in position with a good fit on the distal femur. The notch cutting saws were used. The Collet was placed and a 16-mm CCK posterior stabilized constrained poly was init ially tried and there was a little bit of slack in extension and flexion, so we upsized this to an 18 , which had appropriate stability in extension and flexion. The trials were temporarily removed and then the patella was addressed with a subperiosteal peel lateral release. The patellar surface was t hen recut to a flat surface for placement of a new patellar component. There was sufficient thicknes s of the patella after it was cut at about 13-14 mm thickness. The patella was measured for a 35 sym metrical patellar component. The clamp was placed. The drill holes were made. Some of the excess l ateral facet was bevelled off and the patella slightly medialized, but essentially in the same positi on as the prior patellar component was. All the implants were placed back in and the patella tracked centrally and no lateral release was required. All the trials were removed at this time. The bony surfaces were then copiously irrigated with antibi otic solution with Ancef in the bag. Three more liters of irrigation was used. The bony surfaces we re all dried appropriately and appropriate retractors were placed to expose the tibia. Refobacin kunal ent with gentamicin was used. The final components were cemented cementing the proximal portion and the splined stems were placed uncemented. The tibial component was an E tibial component with a 10 x 135 splined stem with 3-degree offset at the 9 o'clock position. The femur was then cemented, which was a 7 standard femoral component with 5-mm distal lateral augment and a 14 x 135, 3-degree offset stem at the 9:15 position. At this point, the polyethylene was placed and the knee was placed into f ull extension. Cement was cleared and I mixed a second batch of cement with Refobacin with gentamici n for the patella, which was subsequently cemented. After the cement hardened, did a Betadine soak f or 3 minutes after the tibial and femoral components and again after the patellar component. The wound was copiously irrigated again with the antibiotic solution with Ancef and total irrigation was 12 liters. The tibial screw and the CCK component was torqued tight and the two Hemovac drains w ere placed in the joint and brought out laterally and the quadriceps tendon and medial retinaculum we re closed with two [id number] #1 Vicryl bacterial resistant suture and the subcutaneous tissues were closed with interrupted 2-0 Vicryl bacterial resistant suture. Skin was closed with gena. S terile dressings were applied. The second tourniquet time was let down during the stapling part of t he procedure. The patient had normal return of circulation to extremity. The patient tolerated the procedure well without complications noted at this time. ARMOND Dalton. was my assistant chief engineer who functioned as assistant chief engineer and was integral part in all aspects of the procedure performed, including prepping, draping, leg positioning, soft tissue re traction, instrument management, wound closure and postoperative care. Job ID: [id number]
[2022-03-08 06:48] LABS: Hematocrit (blood only) 30.6 % (40.1-51.0); Mean Corpuscular Hemoglobin 28.9 pg (25.0-34.0); Mean Corpuscular Hgb Conc 32.7 g/dL (32.0-36.0); Mean Corpuscular Volume 88.4 fL (80.0-100.0); Mean Platelet Volume 9.5 fL (9.4-12.4); Platelet Count 184 K/uL (130-400); RDW Coefficient of Variation 14.5 % (11.5-14.5); RDW Standard Deviation 46.1 fL (36.4-46.3); Red Blood Count 3.46 M/uL (4.63-6.08); White Blood Count 10.52 K/ul (4.8-10.8)
[2022-03-08 07:15] LABS: Calcium 8.1 mg/dl (8.5-10.1); Creatinine Clr Calc Pharmacy 47.1 ml/min; Est GFR (African American) 62.6 ml/min; Potassium 4.5 mmol/L (3.5-5.1)
[2022-03-08] MEDS: ceFAZolin 2000MG 2,000 MG/15 ML SYR IV SCH ×2 (07:38)
[2022-03-08] MEDS: PANTOprazole 40 MG TAB PO SCH ×2 (07:40→20:07)
[2022-03-08] MEDS: ISOSORBIDE MONO EXTENDED REL 30 MG TABCR PO SCH (07:40)
[2022-03-08] MEDS: CYANOCOBALAMIN (B-12) 500 MCG TABLET PO SCH (07:40)
[2022-03-08] MEDS: APIXABAN 5 MG TABLET PO SCH ×2 (07:41→20:08)
[2022-03-08] MEDS: buPROPion XL 150 MG TABCR PO SCH (07:41)
[2022-03-08] MEDS: DOCUSATE SODIUM 100 MG CAP PO SCH ×2 (07:41→20:08)
[2022-03-08] MEDS: amLODIPine BESYLATE 5 MG TAB PO SCH (07:41)
[2022-03-08] MEDS: CETIRIZINE HCL 10 MG TABLET PO SCH (07:42)
[2022-03-08] MEDS: MULTIVITAMIN TAB PO SCH (07:42)
[2022-03-08] MEDS: oxyCODONE HCL IR 5 MG TAB (IMMEDIATE RELEASE) PO PRN ×2 (08:35→20:05)
[2022-03-08] MEDS ORDERED: NON-FORMULARY MEDICATION (Multivitamin [Multiple Vitamins] tablet) PO SCH (09:00)
--- NOTE | 2022-03-08 10:36 | Orthopedic Progress Note ---
Date of Service March 08, 2022 Assessment & Plan (1) Infection of total knee replacement: Plan: ShinPostop day 1 status post right TKA status post explant antibiotic spacer secondary to previous infection Cultures no growth to date at this time. PT/OT protocols. Weightbearing as tolerated. Progressing well. DVT prophylaxis-apixaban twice daily, SCDs, ALLYSSA hose Pain management as written. DC planning-patient is planning for home health services upon discharge. Possible discharge to home today. Admission and Anticipated Discharge Date Admission Date: March 07, 2022 Subjective Postop day 1 Patient lying in bed doing his bedside exercises. States that he has gone through PT and OT today and has done well. Pain is controlled. Denies shortness of breath, chest pain, lightheadedness. Physical Exam Physical Exam: Signs are clean, dry, and intact. Calves are soft nontender. Neurovascular is intact. Toes are mobile. Hemovac drainage was 150 mL from the previous shift. Results & Data ([facility]) Vital Signs (Past 12 Hours) Vital Signs Temp Pulse Resp BP Pulse Ox O2 Del Method 03/08/22 10:30 36.7 C 60 18 130/70 95 Room Air 03/08/22 07:28 36.5 C 62 16 137/77 95 Room Air 03/08/22 03:36 36.4 C L 68 18 129/76 95 Room Air 03/08/22 00:00 36.5 C 68 16 113/74 93 Room Air 03/07/22 22:47 36.7 C 69 16 132/77 93 Room Air Laboratory Results Laboratory Results WBC 10.52 K/ul (4.8-10.8) 03/08/22 06:32 RBC 3.46 M/uL (4.63-6.08) L 03/08/22 06:32 Hgb 10.0 g/dl (14.0-18.0) L 03/08/22 06:32 Hct 30.6 % (40.1-51.0) L 03/08/22 06:32 MCV 88.4 fL (80.0-100.0) 03/08/22 06:32 MCH 28.9 pg (25.0-34.0) 03/08/22 06:32 MCHC 32.7 g/dL (32.0-36.0) 03/08/22 06:32 RDW Std Deviation 46.1 fL (36.4-46.3) 03/08/22 06:32 RDW Coeff of Redd 14.5 % (11.5-14.5) 03/08/22 06:32 Plt Count 184 K/uL (130-400) 03/08/22 06:32 MPV 9.5 fL (9.4-12.4) 03/08/22 06:32 Sodium 137 mmol/L (136-145) 03/08/22 06:32 Potassium 4.5 mmol/L (3.5-5.1) 03/08/22 06:32 Chloride 104 mmol/L (98-107) 03/08/22 06:32 Carbon Dioxide 24 mmol/L (21-32) 03/08/22 06:32 Anion Gap 9 (3-11) 03/08/22 06:32 BUN 30 mg/dl (6-23) H 03/08/22 06:32 Creatinine 1.25 mg/dl (0.6-1.4) 03/08/22 06:32 Est Cr Clr Drug Dosing 47.1 ml/min 03/08/22 06:32 Est GFR ( Amer) 62.6 ml/min 03/08/22 06:32 Est GFR (Non-Af Amer) 54.0 ml/min 03/08/22 06:32 BUN/Creatinine Ratio 24.0 (10-20) H 03/08/22 06:32 Glucose 132 mg/dl (70-99(Fasting)) H 03/08/22 06:32 Calcium 8.1 mg/dl (8.5-10.1) L 03/08/22 06:32 SARS-CoV-2, RNA, NAAT NEGATIVE (NEGATIVE) 03/07/22 11:20 Impressions Knee X-Ray 03/07/22 20:01 RIGHT KNEE 2 VIEWS History: Right total knee arthroplasty/revision. Degenerative arthritis. Postop. FINDINGS: The patient is status post a right total knee arthroplasty. The hardware is intact. No fracture or dislocation. Skin gena and surgical drains are in place. IMPRESSION: Right total knee arthroplasty. No evidence for hardware complication. ACT 112: Negative or not required by law. Electronically signed by: Delonte Aguila M.D. 03/07/2022 8:40 PM (1) Infection of total knee replacement Encounter type: subsequent encounter Qualified Code(s): T84.59XD - Infection and inflammatory reaction due to other internal joint prosthesis, subsequent encounter; Z96.659 - Presence of unspecified artificial knee joint
--- NOTE | 2022-03-08 16:49 | Consultation ---
Date of Consultation March 08, 2022 Assessment & Plan (1) HTN (hypertension): Home therapy; noted fluctuating blood pressuresobserve (2) HLD (hyperlipidemia): Continue home statin (3) Mood disorder: Continue home therapy (4) Thoracic aortic aneurysm: Outpatient follow-up (5) Anemia: For somewhat chronic though fluctuatingfollow (6) Hypothyroidism: Continue home thyroid replacement. (7) Ortega esophagus: Continue PPI (8) Dizziness and giddiness: Inclined to observe; appears postural/orthostatic (9) Paroxysmal A-fib: Resumption of Eliquis notedPer Ortho Plan Primary issue of knee replacement, infection per orthopedics; can consult ID if needed History of Present Illness Requesting Physician: Michael Guillen MD Reason for Consultation: Status post knee replacement, history of hypertension, hyperlipidemiaconsult requested for medical management Attending Physician: Michael Guillen MD History of Present Illness 81-year-old male with a history of DJD, hypertension, hyperlipidemia, aortic aneurysm, mood disorder, Ortega's esophagus, A. fib presented for revision surgery of right knee following infection and we are consulted for medical management; he is postop day 1 and earlier, a couple of times, had dizziness/unsteadiness when eretc; at present feels well and has no systemic complaints. Allergies Allergy/AdvReac Type Severity Reaction Status Date / Time No Known Drug Allergies Allergy Verified 03/07/22 12:00 Home Medications Medication Instructions Recorded Confirmed Type cyanocobalamin (vitamin B-12) 1,000 mcg PO QAM 02/07/20 03/07/22 History 1,000 mcg tablet atorvastatin 10 mg tablet (Lipitor) 10 mg PO QPM 02/10/20 03/07/22 History duloxetine 60 mg capsule,delayed 60 mg PO QPM 02/10/20 03/07/22 History release (Cymbalta) levothyroxine 112 mcg tablet 112 mcg PO UD 02/10/20 03/07/22 History (Synthroid) multivitamin (Multiple Vitamins 1 tab PO QAM 02/10/20 03/07/22 History tablet) telmisartan 80 mg tablet (Micardis) 80 mg PO QPM 02/10/20 03/07/22 History zinc acetate 1 cap PO QAM 11/23/03/07/22 History esomeprazole magnesium 40 mg 40 mg PO BID 01/09/21 03/07/22 History capsule,delayed release (Nexium) levothyroxine 100 mcg capsule 100 mcg PO UD 03/15/21 03/07/22 History propranolol 40 mg tablet 40 mg PO QPM 03/15/21 03/07/22 History bupropion HCl 300 mg 24 hr tablet, 500 mg PO QAM 07/16/21 03/07/22 History extended release (Wellbutrin XL) apixaban 5 mg tablet (Eliquis) 5 mg PO BID #60 tabs 08/13/21 03/07/22 Rx mometasone 0.1 % topical solution 1 applic topical DAILY PRN rash 09/06/21 02/14/22 Rx #30 mL cetirizine 10 mg tablet (Zyrtec) 10 mg PO QAM 11/01/21 03/07/22 History isosorbide mononitrate 30 mg 30 mg PO QAM 11/01/21 03/07/22 History tablet,extended release 24 hr oxycodone 5 mg tablet 5 mg PO Q4H PRN pain #30 tabs 11/16/21 02/14/22 Rx amlodipine 5 mg tablet (Norvasc) 5 mg PO QAM 02/14/22 03/07/22 History acetaminophen 500 mg tablet 1,000 mg PO Q8 14 days #84 tabs 03/08/22 Rx (Tylenol Extra Strength) cefadroxil 500 mg capsule 500 mg PO BID #14 caps 03/08/22 Rx oxycodone 5 mg tablet 5 mg PO Q4H PRN pain #30 tabs 03/08/22 Rx polyethylene glycol 3350 17 gram 17 g PO DAILY PRN constipation #5 03/08/22 Rx oral powder packet (Miralax) ea Patient History Medical History AAA (abdominal aortic aneurysm) "Mild aneurysmal dilatation of the ascending thoracic aorta measuring 4.3 cm in diameter. This is not significantly changed." per 10/2019 CT. 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" per pt (~4 years) Follows with ophthalmology Surgical History History of anesthesia complications Trapped epidural catheter requiring laminectomy and removal 08/25/2015 History of appendectomy History of bowel resection 2016 complicated by presence of small tumor requiring patient undergoing surgery soon in post-op period due to epidural catheter coiling around tumor History of cervical spinal surgery x 2 surgeries - limited ROM up/down, side to side @ [facility] History of colonoscopy History of esophagogastroduodenoscopy (EGD) History of hernia repair History of left knee replacement History of lumbar surgery 2009, 2011 ([facility]) History of Mohs micrographic surgery for skin cancer History of right knee joint replacement 2005 History of shoulder surgery Right x2, Left x2 S/P right knee surgery Removal of right total knee, placement antibiotic spacer (11/09/21): Grade view 1, Glidescope #4, ETT 7.5 at [facility]. No major issues noted per post-op anesthesia progress note. Per anesthesia consult, surgery done under [facility] d/t hx epidural complications and h/o AAA without recent imaging. Family History Father Hypertension Heart disease Sister Breast cancer Liver cancer Mother Breast cancer Other No family history of adverse response to anesthesia No family history of bleeding disorder Social History Smoking Status: Former smoker Tobacco Type: Cigarettes packs per day: 1; Years Smoked: 25; Smoking End Date: Quit 1977; Second Hand Exposure: No; Do You Dip or Chew Tobacco: No; Tobacco Cessation Education Requested by Patient: No Hx Alcohol Use: Yes Alcohol type: hard liquor Alcohol Intake Frequency Comment: 2 drinks/week Hx Substance Use: No Preferred Language: [place] Communication Ability: Effective Flight Operations Engineer Required: No Beliefs That Will Affect Care: None marital status: Current Living Situation: Spouse current occupational status: retired Other Information That Helps Us Care for You: No Feels Safe at Home: Yes Safety Concerns: Feels Safe At This Time Assistive Devices: Walker Review of Systems Review of Systems: All systems reviewed, negative except as noted in history of present illness. Physical Exam Physical Exam: Constitutional and general: No acute distress, looks biologic age Head and face: No puffiness, atraumatic Eyes: No scleral icterus, extraocular movements normal Neck: Supple, no JVD Musculoskeletal: No acute joint swelling, no bony abnormalities Skin/dermatologic/integument: No rash, no purpura Hematologic and lymphatic: pallor +, no petechia Gastrointestinal/abdomen: Nondistended, soft, nonacute Neurologic: Cranial nerves intact, nonfocal Psychiatry: Awake, alert, pleasant, communicative Cardiovascular: Heart rhythm regular, no rub, no murmur, no gallop Respiratory: Chest movements equal, no use of accessory muscles, no adventitious sounds Extremities: No edema, no cyanosis Results & Data ([facility]) Vital Signs (Past 12 Hours) Vital Signs Temp Pulse Pulse Resp BP Pulse Ox O2 Del Method 03/08/22 15:07 37 C 61 20 103/60 99 03/08/22 13:05 57 L 112/57 L 03/08/22 08:00 Room Air 03/08/22 10:30 36.7 C 60 18 130/70 95 Room Air 03/08/22 07:28 36.5 C 62 16 137/77 95 Room Air Laboratory Results Laboratory Results - last 24 hr 03/08/22 03/08/22 06:32 06:32 WBC 10.52 RBC 3.46 L Hgb 10.0 L Hct 30.6 L MCV 88.4 MCH 28.9 MCHC 32.7 RDW Std Deviation 46.1 RDW Coeff of Redd 14.5 Plt Count 184 MPV 9.5 Sodium 137 Potassium 4.5 Chloride 104 Carbon Dioxide 24 Anion Gap 9 BUN 30 H Creatinine 1.25 Est Cr Clr Drug Dosing 47.1 Est GFR ( Amer) 62.6 Est GFR (Non-Af Amer) 54.0 BUN/Creatinine Ratio 24.0 H Glucose 132 H Calcium 8.1 L PG Care Time/CCT Total # of Minutes Spent Total Time Spent with Patient: Total time spent is greater than 50% in coordination of care (as documented) at patient's floor/unit and/or counseling patient: Coding Level of Care Code 43122 Inpt Consult Level 2 Diagnoses HTN (hypertension) I10 HLD (hyperlipidemia) E78.5 Mood disorder F39 Thoracic aortic aneurysm I71.2 Anemia D64.9 Hypothyroidism E03.9 Ortega esophagus K22.70 Dizziness and giddiness R42 Paroxysmal A-fib I48.0
[2022-03-08] MEDS: TELMISARTAN 40 MG TAB PO SCH (20:05)
[2022-03-08] MEDS: SENNA 8.6 MG TAB PO SCH (20:06)
[2022-03-08] MEDS: PROPRANOLOL HCL 20 MG TAB PO SCH (20:06)
[2022-03-08] MEDS: DULoxetine HCL 60 MG CAP PO SCH (20:08)
[2022-03-08] MEDS: ATORVASTATIN 10 MG TAB PO SCH (20:08)
[2022-03-09] MEDS: ACETAMINOPHEN 500 MG TAB PO SCH (05:40)
[2022-03-09] MEDS ORDERED: LEVOTHYROXINE SODIUM 100 MCG TABLET PO SCH (06:30)
[2022-03-09 07:07] LABS: Hematocrit (blood only) 28.7 % (40.1-51.0); Hemoglobin 9.3 g/dl (14.0-18.0); Mean Corpuscular Hemoglobin 28.4 pg (25.0-34.0); Mean Corpuscular Hgb Conc 32.4 g/dL (32.0-36.0); Mean Corpuscular Volume 87.5 fL (80.0-100.0); Mean Platelet Volume 9.9 fL (9.4-12.4); Platelet Count 169 K/uL (130-400); RDW Coefficient of Variation 14.6 % (11.5-14.5); RDW Standard Deviation 46.6 fL (36.4-46.3); Red Blood Count 3.28 M/uL (4.63-6.08); White Blood Count 9.11 K/ul (4.8-10.8)
[2022-03-09 07:37] LABS: BUN Creatinine Ratio 26.6 (10-20); Calcium 8.3 mg/dl (8.5-10.1); Creatinine Clr Calc Pharmacy 42.4 ml/min; Est GFR (African American) 55.1 ml/min; Est GFR (Non-African American) 47.5 ml/min
[2022-03-09] MEDS: ISOSORBIDE MONO EXTENDED REL 30 MG TABCR PO SCH (08:09)
[2022-03-09] MEDS: amLODIPine BESYLATE 5 MG TAB PO SCH (08:09)
[2022-03-09] MEDS: DOCUSATE SODIUM 100 MG CAP PO SCH (08:09)
[2022-03-09] MEDS: buPROPion XL 150 MG TABCR PO SCH (08:09)
[2022-03-09] MEDS: CETIRIZINE HCL 10 MG TABLET PO SCH (08:09)
[2022-03-09] MEDS: MULTIVITAMIN TAB PO SCH (08:09)
[2022-03-09] MEDS: CYANOCOBALAMIN (B-12) 500 MCG TABLET PO SCH (08:10)
[2022-03-09] MEDS: PANTOprazole 40 MG TAB PO SCH (08:10)
[2022-03-09] MEDS: APIXABAN 5 MG TABLET PO SCH (08:10)
[2022-03-09] MEDS: oxyCODONE HCL IR 5 MG TAB (IMMEDIATE RELEASE) PO PRN (09:36)
--- NOTE | 2022-03-09 10:09 | Orthopedic Progress Note ---
Date of Service March 09, 2022 Assessment & Plan (1) Infection of total knee replacement: Plan: Postoperative day #2 status post revision right total knee arthroplasty -He has good mobility, and feels safe ready for discharge to home today. -Follow-up with Dr. Guillen in clinic 2 weeks postoperatively. Admission and Anticipated Discharge Date Admission Date: March 07, 2022 Subjective Patient sitting in chair and resting comfortably. Pain is well controlled. He is ambulating independently in his room. Physical Exam Physical Exam: Right knee dressings are clean, dry, intact. Motor and sensory function intact distally. Results & Data ([facility]) Vital Signs (Past 12 Hours) Vital Signs Temp Pulse Resp BP Pulse Ox O2 Del Method 03/09/22 07:26 36.5 C 54 L 16 148/78 H 96 Room Air 03/09/22 03:11 36.5 C 55 L 16 112/64 95 (1) Infection of total knee replacement Encounter type: subsequent encounter Qualified Code(s): T84.59XD - Infection and inflammatory reaction due to other internal joint prosthesis, subsequent encounter; Z96.659 - Presence of unspecified artificial knee joint
--- NOTE | 2022-03-09 20:12 | Discharge Summary ---
Date of Service March 09, 2022 Admission HPI Per Admitting Provider 81yo male with PMHx significant for AAA, a-fib, valvular heart disease, HTN, high cholesterol, right infected total knee who presents for revision surgery following placement of antibiotic spacer. Patient has finished IV antibiotics. Repeat cultures have remained negative. Patient denies headaches, sweats, fevers, chills, double vision, blurred vision, cough, sore throat, dysphagia, chest pain, sob, wheezing, n/v/d/c, numbness, tingling, fatigue, urinary symptoms, mood disorders. ROS positive for right knee pain and stiffness. Admission Exam Per Admitting Provider Constitutional: well developed and well nourished; no acute distress Eyes: PERRL, conjunctivae normal, anicteric sclerae ENMT: external ear and nose normal, oropharynx normal Neck: trachea midline, no thyromegaly Respiratory: normal respiratory effort, lungs clear to auscultation Cardiovascular: RRR, no murmur, no edema Musculoskeletal: Right knee: Incision well-healed with no erythema. Range of motion 0 to 90 degrees. Moderate crepitation. No pain with gentle range of motion. Stable to valgus and varus stress. Skin: no rashes, warm and dry Neurologic: patellar DTR's 2+ bilat, sensation intact Psychiatric: A+Ox3, euthymic affect Principal Diagnosis infected right total knee Discharge Exam Right knee dressings are clean, dry, intact. Motor and sensory function intact distally. Constitutional WD/WN, vitals as above Discharge Data Allergies Allergy/AdvReac Type Severity Reaction Status Date / Time No Known Drug Allergies Allergy Verified 03/07/22 12:00 Consultations 03/07/22 21:54 Consult Hospitalist Routine Procedures Performed Operation Date: 03/07/22 13:15 Actual Procedures p Revision Right Total Knee Replacement of Femur, Tibia, and Patella, Explantation of Antibiotic Spacer and Synovectomy(Right) - Michael Guillen MD Ordered Studies 03/07/22 05:00 US - OR guided needle placemen Routine Hospital Course (1) Infection of total knee replacement: Postoperative day #2 status post revision right total knee arthroplasty -He has good mobility, and feels safe ready for discharge to home today. -Follow-up with Dr. Guillen in clinic 2 weeks postoperatively. ShinPostop day 1 status post right TKA status post explant antibiotic spacer secondary to previous infection Cultures no growth to date at this time. PT/OT protocols. Weightbearing as tolerated. Progressing well. DVT prophylaxis-apixaban twice daily, SCDs, ALLYSSA hose Pain management as written. DC planning-patient is planning for home health services upon discharge. Possi ble discharge to home today. Lab Results 03/07/22 03/08/22 03/08/22 Range/Units 11:20 06:32 06:32 WBC 10.52 (4.8-10.8) K/ul RBC 3.46 L (4.63-6.08) M/uL Hgb 10.0 L (14.0-18.0) g/dl Hct 30.6 L (40.1-51.0) % MCV 88.4 (80.0-100.0) fL MCH 28.9 (25.0-34.0) pg MCHC 32.7 (32.0-36.0) g/dL RDW Std Deviation 46.1 (36.4-46.3) fL RDW Coeff of Redd 14.5 (11.5-14.5) % Plt Count 184 (130-400) K/uL MPV 9.5 (9.4-12.4) fL Sodium 137 (136-145) mmol/L Potassium 4.5 (3.5-5.1) mmol/L Chloride 104 (98-107) mmol/L Carbon Dioxide 24 (21-32) mmol/L Anion Gap 9 (3-11) BUN 30 H (6-23) mg/dl Creatinine 1.25 (0.6-1.4) mg/dl Est Cr Clr Drug Dosing 47.1 ml/min Est GFR ( Amer) 62.6 ml/min Est GFR (Non-Af Amer) 54.0 ml/min BUN/Creatinine Ratio 24.0 H (10-20) Glucose 132 H (70-99(Fasting)) mg/dl Calcium 8.1 L (8.5-10.1) mg/dl SARS-CoV-2, RNA, NAAT NEGATIVE (NEGATIVE) 03/09/22 03/09/22 Range/Units 05:54 05:54 WBC 9.11 (4.8-10.8) K/ul RBC 3.28 L (4.63-6.08) M/uL Hgb 9.3 L (14.0-18.0) g/dl Hct 28.7 L (40.1-51.0) % MCV 87.5 (80.0-100.0) fL MCH 28.4 (25.0-34.0) pg MCHC 32.4 (32.0-36.0) g/dL RDW Std Deviation 46.6 H (36.4-46.3) fL RDW Coeff of Redd 14.6 H (11.5-14.5) % Plt Count 169 (130-400) K/uL MPV 9.9 (9.4-12.4) fL Sodium 136 (136-145) mmol/L Potassium 4.0 (3.5-5.1) mmol/L Chloride 104 (98-107) mmol/L Carbon Dioxide 26 (21-32) mmol/L Anion Gap 6 (3-11) BUN 37 H (6-23) mg/dl Creatinine 1.39 (0.6-1.4) mg/dl Est Cr Clr Drug Dosing 42.4 ml/min Est GFR ( Amer) 55.1 ml/min Est GFR (Non-Af Amer) 47.5 ml/min BUN/Creatinine Ratio 26.6 H (10-20) Glucose 87 (70-99(Fasting)) mg/dl Calcium 8.3 L (8.5-10.1) mg/dl SARS-CoV-2, RNA, NAAT (NEGATIVE) Total Time Total Time Spent Total Time Spent (In Minutes): 20 Discharge Plan Discharge Items Patient Disposition: Home - Home Health Services Reason For Visit: Infection and Inflammatory Reaction Due to Interna Discharge Diagnosis: s/p infection right tka with antibx spacer Activity: Per Instructions section Weightbearing: Right weightbearing Weightbearing Comment: as tolerated with walker Non-emergency contact: Surgeon Call non-emergency contact if: you have any medication questions, your pain is not controlled, your temperature is above 101.5, your wound has increased redness and your wound has increased drainage Follow-up/Referrals: Lamine Sandoval [Primary Care Provider] - Michael Guillen MD [Surgeon] - (follow up with Dr Guillen 2 weeks from the day of your surgery for your first postoperative visit) Diet: Regular Addtl Attending Provider Instructions: ACTIVITY RECOMMENDATIONS: SELF CARE INSTRUCTIONS AFTER TOTAL KNEE REPLACEMENT A. You may need to continue a physical therapy program after discharge from the hospital. There are several options available to you. Your doctor will assist you in selecting the best one for you. 1. An out-patient facility 2 to 3 times a week for therapy or home therapy. 2. Continue working on all exercises taught to you in the hospital. Your goals should be to increase bending of your knee to 90 degrees and beyond and to fully straighten your knee. B. You may progress at your own pace from walking with a walker or crutches to a cane; then to no assistive devices. C. Make walking a part of your daily routine. Be up as much as comfortable with rest periods throughout the day. Rest with leg elevation is very important. Use the ice wrap frequently for the first 3-4 weeks. D. There are no restrictions on activities. You may ride in a car, shop, participate in adaptive physical education specialist and all social activities. E. Wear the long elastic stockings (ALLYSSA hose) 20 hours a day for 2 weeks after surgery. They can be removed several times a day for laundering and for a bath. F. You may shower, no tub baths until cleared by your doctor. SPECIAL CARE INSTRUCTIONS: VERY IMPORTANT TO READ AND REVIEW A. There are a few signs you need to watch for after you are home. Call [facility] if you notice any of the followin. Increased severe knee pain. Some pain is expected especially when you exercise. 2. Increased swelling in your leg or knee; pain or swelling of the calf muscle in either lower leg. 3. Any fluid drainage from the incision. 4. Shortness of breath or chest pain. B. Please call [facility] at if you have any concerns or questions about your operation or recovery. The doctor or his nurse will return your call promptly. C. You must take antibiotics before dental work, bladder, bowel or other surgery. Your doctor will provide you with a permanent care to carry describing this precaution. IMPORTANT: * REMEMBER TO TAKE APIXABAN 5MG ORALLY TWICE DAILY * CALL IF INCREASED PAIN, REDNESS, DRAINAGE OR FEVER GREATER THAT 101. * WEAR ALLYSSA HOSE 20 HOURS PER DAY FOR 2 WEEKS. * MORENA Dressing - This is a large suction dressing covering your incision. This will help pull any excess drainage from the wound and allow your incision to heal properly. You may shower with this if you can keep the unit outside of the shower. If any bleeding or leakage is noted please call your doctor's office. This will remain on your incision for 7 days and then should be removed. This can be done yourself or by the home nursing staff if applicable. The entire unit is disposable once removed. Once removed, keep incision clean and dry. If redness or drainage is noted, please call your surgeon. . FOLLOW UP VISIT: If appointment is not already scheduled: Please call [facility] to make a follow-up appointment for 2 weeks after your surgery at . Pending Studies at Discharge: No Stand-Alone Forms: My [facility] [employer], Smoking Cessation Medications and DC Order Prescriptions: New acetaminophen [Tylenol Extra Strength] 500 mg Tablet 1,000 mg PO Q8 14 Days Qty: 84 0RF polyethylene glycol 3350 [Miralax] 17 gram powder in packet 17 g PO DAILY PRN (Reason: constipation) Qty: 5 0RF cefadroxil 500 mg capsule 500 mg PO BID Qty: 14 0RF oxycodone 5 mg tablet 5 mg PO Q4H MDD 6 PRN (Reason: pain) Qty: 30 0RF Continued Eliquis 5 mg tablet 5 mg PO BID Qty: 60 11RF cyanocobalamin (vitamin B-12) 1,000 mcg tablet 1,000 mcg PO QAM esomeprazole magnesium [Nexium] 40 mg capsule,delayed release(DR/EC) 40 mg PO BID zinc acetate 1 cap PO QAM telmisartan [Micardis] 80 mg tablet 80 mg PO QPM atorvastatin [Lipitor] 10 mg tablet 10 mg PO QPM duloxetine [Cymbalta] 60 mg capsule,delayed release(DR/EC) 60 mg PO QPM levothyroxine [Synthroid] 112 mcg tablet 112 mcg PO UD multivitamin [Multiple Vitamins] Tablet 1 tab PO QAM bupropion HCl [Wellbutrin XL] 300 mg tablet extended release 24 hr 500 mg PO QAM propranolol 40 mg tablet 40 mg PO QPM levothyroxine 100 mcg capsule 100 mcg PO UD mometasone 0.1 % solution 1 applic topical DAILY PRN (Reason: rash) Qty: 30 1RF Rx Instructions: apply to external ear BID x 1 week then 2-3 x / week PRN itching/flaking cetirizine [Zyrtec] 10 mg Tablet 10 mg PO QAM isosorbide mononitrate 30 mg tablet extended release 24 hr 30 mg PO QAM amlodipine [Norvasc] 5 mg Tablet 5 mg PO QAM Discontinued oxycodone 5 mg Tablet 5 mg PO Q4H MDD 6 PRN (Reason: pain) Qty: 30 0RF Discharge Orders: Discharge Order (Routine); Ordered 03/09/22 Ordered By: Dante Castillo/Other Patient Handouts: Preventing Falls in the Home, Falls Prevent Adjust Living Space Admission Data Admit Date/Time: 03/07/22 20:01 Attending Provider: Michael Guillen Admit Provider: Michael Guillen Primary Care Provider: Lamine Sandoval Other Providers: Serafin Nath ; Steve Vivas ; [facility],Home Healthcare ; [facility],Referral Center Other Interventions: Discharge Summary Assessment (RN) Last Done: 03/09/22 10:27
== END 2022-03-09 12:10 | disposition home health service (06) ==
LOC: ASU 11:09 → 3E 20:01 → INTOOBSV 20:01
DX: Z87.891 Personal history of nicotine dependence; Z96.653 Presence of artificial knee joint, bilateral; T84.59XD Infection and inflammatory reaction due to other internal joint prosthesis, subsequent encounter; Z79.01 Long term (current) use of anticoagulants; Y83.1 Surgical operation with implant of artificial internal device as the cause of abnormal reaction of the patient, or of later complication, without mention of misadventure at the time of the procedure; Z79.899 Other long term (current) drug therapy